=== PATIENT | female | born 1970 | race Caucasian/White ===

== ENCOUNTER 2018-09-06 14:14 | Outpatient (CLI) | payer MEDICARE, MEDICAID, SELFPAY | END 2018-09-06 14:34 | PROVIDERS: PCP Family Medicine; Referring Provider Nurse Practitioner Family; Visit Provider Internal Medicine Infectious Disease | DX: B20 Human immunodeficiency virus [HIV] disease (principal); Z79.899 Other long term (current) drug therapy | CPT/HCPCS: 99215 ==

== ENCOUNTER 2022-05-27 18:39 | Inpatient (IN) | payer OTHER, MEDICAID, SELFPAY ==
[2022-05-27] VITALS (45 sets, daily range): BP systolic 128–143; BP diastolic 75–90; PULSE 108–121; RESP 8–29; TEMP 36.8; O2SAT 84–99
--- NOTE | 2022-05-27 18:45 | DI.RAD_ITS ---
Exam(s) XR PORTABLE CHEST AP EXAM: XR PORTABLE CHEST AP CLINICAL HISTORY: hypoxic/hypercarbic respiratory failure TECHNIQUE: 2D digital imaging was performed of the chest. Two images were obtained. AP views were obtained. COMPARISON: No exams were available for comparison FINDINGS: MEDIASTINUM: Normal. HEART: Normal. PULMONARY VASCULATURE: Normal. LUNGS: Clear. PLEURAL SPACE: No pleural effusion or pneumothorax. BONE:Within normal limits for the patient's age. OTHER FINDINGS:The tip of the enteric tube is just beyond the gastroesophageal junction. The tip of the endotracheal tube is 4.6 cm above the perez. IMPRESSION: 1. No acute pulmonary findings. 2. Tip of the enteric tube is seen just beyond the gastroesophageal junction. The tip of the endotra cheal tube is in good position well above the perez. DATA REPOSITORY: RADIATION DOSE DELIVERED:
[2022-05-27] MEDS: PROPOFOL 1,000 MG/100 ML BTL 19.776 MG IVPB ×2 (19:30→23:34)
[2022-05-27] MEDS: Normal Saline Flush 10 ML SYR (19:30)
[2022-05-27] MEDS: Albuterol/Ipratropium 3 ML UPD VIAL UPD (20:01)
--- NOTE | 2022-05-27 20:19 | DI.VRAD_ITS ---
PROCEDURE INFORMATION: Exam: XR Chest Exam date and time: 05/27/2022 7:50 PM Age: 52 years old Clinical indication: Other: Hypoxic/hypercarbic respiratory failure TECHNIQUE: Imaging protocol: Radiologic exam of the chest. Views: 1 view. COMPARISON: No relevant prior studies available. FINDINGS: Enteric tube tip just distal to the GE junction in the proximal stomach. ETT tip approximately 5 cm above the perez Lungs: Unremarkable. No consolidation. Pleural spaces: Unremarkable. No pleural effusion. No pneumothorax. Heart/Mediastinum: Unremarkable. No cardiomegaly. Bones/joints: Unremarkable. IMPRESSION: No acute findings. Tubes as described in satisfactory position Dictated and Authenticated by: Jorge Castaneda MD. Ordering:[facility] Elizabeth Rutledge MD
[2022-05-27 20:20] LABS: BE (Venous) 3 mmol/L (-2-3); HCO3 (Venous) 30 mmol/L (23-28); O2 Sat (Venous) 84 %; TCO2 (Venous) 29 mmol/L (24-29); pH (Venous) 7.27 (7.31-7.41); pO2 (Venous) 44 mmHg
[2022-05-27 20:21] LABS: Abs Immature Grans 0.05 10^3/uL (0.0-0.06); Absolute Basophil Count 0.01 10^3/uL (0.0-0.2); Absolute Eosinophil Count 0.07 10^3/uL (0.0-0.7); Absolute Lymphocyte Count 1.04 10^3/uL (1.2-3.4); Absolute Monocyte Count 0.68 10^3/uL (0.1-0.8); Basophils % 0.2; Eosinophils % 1.1; HGB 8.8 g/dL (11.2-15.7); Immature Grans % 0.8; Lymphocytes % 15.6; MCHC 31.4 % (32.0-36.0); MCV 118 fL (80-95); MPV 8.1 fL (8.0-11.0); Monocytes % 10.2; Neutrophils % 72.1; Platelet Count 226 10^3/uL (130-400); RBC 2.38 10^6/uL (3.93-5.22); RDW 14.3 % (11.7-14.6); RDW-SD 61.7 fL; WBC 6.65 10^3/uL (4.4-10.8)
[2022-05-27 20:24] LABS: pCO2 (Venous) 65 mmHg (41-51)
--- NOTE | 2022-05-27 20:24 | HPE_ITS ---
Date of service: 05/27/22 Time of Service: 20:25 Assessment and Plan Assessment and plan (1) Acute respiratory failure with hypoxia and hypercapnia: Status: Acute Assessment and plan: Due to acute exacerbation of COPD/asthma. No evidence of a bacterial process triggering this - no role for abx at this time. COVID-19 negative, but will obtain FLUVID. Will also obtain a respiratory culture. For now, will treat with steroids, scheduled + prn nebs, continued symbicort. Adjust vent settings to achieve adequate ventilation. (Tidal volume and RR have to go back up). Per nursing, there is a report of the patient using illicit opioids such as methadone daily. Consider fentanyl, but testing for it at this point may not be helpful as the patient may have received some fentanyl at [facility]. Her UDS was negative. (2) Acute exacerbation of COPD with asthma: Status: Acute Assessment and plan: As above (3) Acute respiratory acidosis: Status: Acute Assessment and plan: as above (4) HIV (human immunodeficiency virus infection): Status: Chronic Assessment and plan: Continue home odefsey (5) DVT prophylaxis: Status: Acute Assessment and plan: lovenox (6) Discharge planning issues: Status: Acute Assessment and plan: Full code Admit to the ICU. Total Critical Care Time 100 minutes. History of Present Illness History of Present Illness Chief Complaint: Altered mental status Narrative: Ms Rogers is a 52 year old female with PMHx of oxygen-dependent COPD as well as asthma, chronic hypoxic respiratory faliure on 4L of O2 by [place], HIV, and reported ongoing daily use of methadone who was brought to [facility] ED by ambulance after kapil nicole found shaky, altered, and with nonsensical speech this morning. As I understand it, she was also somnolent. The patient was last seen normal at 2130 last night. There is no ambulance documentation available for my review. She was unable to provide history upon arrival to [facility] ER. It is documented that she was able to walk. She was afebrile, tachypnic with RR of 26, and tachycardic with HR of 125. Her O2 sats were 97% on RA. her VBG showed pH of 7.04 with PCO2 of 97. She was placed on BiPAP with pCO2 improving to 7.12, but then remaining there for the next 90 minutes despite continued BiPAP therapy, so the patient was intubated with the use of ketamine and succinyl choline and started on propofol for sedation. The patient's vent settings at [facility] were AC, Vt 420 cc, RR 18, PEEP 5, FiO2 of 40%. With this, her ABG did improve to 7.20, pCO2 of 74, pO2 of 84, and bicarb of 29. However, her pressures were too high (40-50 cmH2O) and the tidal volume was dropped. She tested negative for COVID-19. Her CXR was negative for a peumonia. Her CT of the head was also reportedly negative, though I do not have the read in the packet available to me. The patient's BPs were somewhat low on propofol and while initially the rate was decreased with a plan to start a fentanyl drip concurrently, this has not actually been necessary. The patient is normotensive upon arrival to our ICU. Her Current vent settings are AC/Vt 320 cc, RR 14, PEEP 5, FiO2 35%. VBG after 45 minutes of these settings showed: pH of 7.27, pCO2 of 65. Repeat VBG is pending. Review of Systems Unobtainable due to endotracheal tube [facility] All Active Problems (Updated 05/27/22 @ 22:39 by Silvana Guzman MD) Discharge planning issues (Acute) DVT prophylaxis (Acute) Acute respiratory acidosis (Acute) Acute respiratory failure with hypoxia and hypercapnia (Acute) Acute exacerbation of COPD with asthma (Acute) Tendinitis of left rotator cuff (Acute) Swollen feet (Acute) Squamous cell carcinoma in situ (Acute) unknown location Restless legs (Acute) Posttraumatic stress disorder (Acute) Nicotine dependence with current use (Acute) Migraine (Chronic) Kidney stone (Chronic) Insomnia (Acute) GERD (gastroesophageal reflux disease) (Chronic) Elevated blood pressure reading (Acute) Dyspnea (Acute) Depressive disorder (Chronic) Bipolar disorder (Acute) Back problem (Acute) Asthma (Chronic) Arthritis (Acute) Opioid abuse (Acute) Illicit drug use (Acute) Chronic respiratory failure with hypoxia, on home O2 therapy (Acute) COPD (chronic obstructive pulmonary disease) (Chronic) HIV (human immunodeficiency virus infection) (Chronic) Surgical History (Updated 05/27/22 @ 20:32 by Silvana Guzman MD) H/O endoscopy 06/11/2011 History of excision of lesion Hx of colonoscopy 04/16/2011 Hx of hysterectomy 01/09/2002 Family History (Updated 05/27/22 @ 20:33 by Silvana Guzman MD) Other Family history unobtainable due to patient's condition Social History (Updated 05/27/22 @ 20:37 by Silvana Guzman MD) Smoking/Tobacco Use Status: Current every day Smoking risk assessment performed?: Yes Drug use: Daily Details: per report, daily non-prescribed methadone use Meds Allergies and Home Medications Allergies Allergy/AdvReac Type Severity Reaction Status Date / Time mushroom Allergy Unknown Unverified 05/27/22 20:39 codeine AdvReac Unknown Skin Rash Verified 05/27/22 20:39 pollen extracts Allergy Unknown Uncoded 05/27/22 20:39 clindamycin AdvReac Unknown Itching Uncoded 05/27/22 20:39 soap AdvReac Unknown Itching Uncoded 05/27/22 20:39 Home Medications Medication Instructions Recorded Confirmed Type Oxygen 05/27/22 05/27/22 History albuterol sulfate 90 mcg/actuation 1 puff inhalation 4XD 05/27/22 05/27/22 History aerosol inhaler (Ventolin HFA) budesonide-formoterol HFA 160 1 puff inhalation BID 05/27/22 05/27/22 History mcg-4.5 mcg/actuation aerosol inhaler (Symbicort) emtricitabine 200 mg-rilpivirine 1 tab PO DAILY 05/27/22 05/27/22 History 25 mg-tenofovir alafenam 25 mg tablet (Odefsey) Exam Narrative Exam Narrative: General: Middle-aged female who is intubated, sedated, arousable to voice, follows commands Neurological: Follows commands, able to move all 4 extremities Psychiatric: Unable to assess given intubation/sedation Skin: Visible skin intact HEENT: Atraumatic, normocephalic, not tracking, pinpoint pupils, MMM, ET tube in place, no lymphadenopathy, goiter, or JVD Cardiovascular: RRR, no m/r/g, tachycardic Lungs: Diminished ventilator breath sounds B Gastrointestinal: soft, nondistended Genitourinary: has a maguire Extremities: no edema BLEs, no lesions B feet, +1 pedal pulses B, no c/c. Results Imaging Additional studies: Labs at [facility]: CBC: 11.8 H/H 10.4/33.7 Plts 375 Segs 76 Lymphs 11.9 Imm Granulocytes 1.9 CMP: Na 137 K 5.3 Chloride 100 Bicarb 33 BUN 10 Cr 0.97 Glucose 150 Calcium 8.6 AST 23 ALT 24 Alk phos 93 T protein 7.8 Albumin 3.9 T bili 0.2 Lactic acid <0.8 beta hydroxybutyrate 0.6. Troponin I 9.2 pg/mL Procalcitonin <0.15 Magnesium 2.1 D-dimer 0.53 mg/L Acetaminophen level <10 ug/mL Salicylate level 2.0 mg/dL Ethanol level <5 mg/dl UDS: negative UA: specific gravity >=1.030 UA blood 2+ UA pH 6.0 UA protein 2+ UA leuc est negative, UA nitrite negative CXR: No acute findings. Tubes as described in satisfactory position CT head: Done at [facility], but results are not available for my review EKG (Done at [facility]): NSR, HR around 90, no acute ischemia Labs 05/27/22 20:07 05/27/22 20:07 Last Vital Signs Temp 36.8 C 05/27/22 19:42 Pulse 108 H 05/27/22 20:01 Resp 14 05/27/22 20:01 BP 139/90 05/27/22 19:42 Pulse Ox 94 05/27/22 20:01 Multi-Disciplinary Checklist Lines/Tubes CENTRAL LINE: no ARTERIAL LINE: no MAGUIRE: yes, Maguire Day#: 0 ENDOTRACHEAL TUBE: yes, Endotracheal Tube Day#: 0 Sedation: yes, Sedation Vacation: yes Head of Bed@30 degrees: yes Spontaneous Breathing Trial: yes ICU Maintenance GLUCOSE 140-180mg/dL: no, Reason/Intervention: not diabetic NUTRITION AT GOAL: no, PRESSURE ULCER: no RESTRAINTS: yes, Reviewed Necessity: Yes ANTIBIOTICS(if yes, consider Stewardship): No Social Issues FAMILY UPDATED: no, Reason/Intervention: The patient was transferred from [facility] where, as I understand it, conversation with the family had happened PT/OT: no, Reason/Intervention: Not clinically appropriate GOALS/DISPOSITION/AUTHOR'S AGENT: yes CODE STATUS: Full Prophylaxis DVT PROPHYLAXIS: yes GI PROPHYLAXIS: yes, Indication: NPO, on vent Time Spent Time spent with Patient: >75 minutes Time was spent: preparing to see the patient(eg.review tests), obtaining and/or reviewing separately otained hiistory, ordering medications,tests, procedures, referring, communicating with other health spiritual care coordinator, indepentently interpreting results, counseling the patient and care coordination
[2022-05-27 20:37] LABS: Basophilic Stippling Present; Diff Comment RBC Morph Reviewed; Macrocytosis 2+
[2022-05-27 20:42] LABS: ALT 19 U/L (14-59); AST 15 U/L (15-37); Albumin 3.2 g/dL (3.4-5.0); Alkaline Phosphatase 71 U/L (46-116); Anion Gap 1.9 mmol/L (3-11); BUN 7 mg/dL (7-18); Bilirubin, Total 0.3 mg/dL (0.2-1.0); CO2 34.1 mmol/L (21.0-32.0); CREATININE 0.8 mg/dL (0.55-1.02); Calcium 8.1 mg/dL (8.5-10.1); Chloride 106 mmol/L (98-107); Estimated GFR 89.15 (mL/min/1.73m2); Glucose 75 mg/dL (74-106); Potassium 4.5 mmol/L (3.5-5.1); Sodium 142 mmol/L (136-145); Total Protein 6.3 g/dL (6.4-8.2); Troponin I < 50 ng/L (<or=60)
[2022-05-27 20:52] LABS: D-Dimer 641 ng/mlFEU (<500)
[2022-05-27 21:04] LABS: Lab Add On Test DONE
[2022-05-27] MEDS: Lactated Ringers 1,000 ML 100 ML IV (21:39)
[2022-05-27] MEDS: Enoxaparin 40 MG/0.4 ML SYR SC (21:40)
[2022-05-27] MEDS: methylPREDNISolone SUCC 125 MG VIAL IVP (21:40)
[2022-05-27] MEDS: Pantoprazole 40 MG VIAL IVP (21:41)
[2022-05-27 21:43] LABS: NT-proBNP 338 pg/mL (<300)
[2022-05-27 21:56] LABS: BE (Venous) 3 mmol/L (-2-3); HCO3 (Venous) 31 mmol/L (23-28); O2 Sat (Venous) 71 %; TCO2 (Venous) 31 mmol/L (24-29); pO2 (Venous) 38 mmHg
[2022-05-27] MEDS: FAMOTIDINE 20 MG in Normal Saline 100 ML 400 MG IVPB (22:00)
[2022-05-27 22:01] LABS: pCO2 (Venous) 81 mmHg (41-51); pH (Venous) 7.19 (7.31-7.41)
[2022-05-27 23:24] LABS: BE (Venous) 4 mmol/L (-2-3); HCO3 (Venous) 28 mmol/L (23-28); pCO2 (Venous) 43 mmHg (41-51); pH (Venous) 7.43 (7.31-7.41); pO2 (Venous) 133 mmHg
[2022-05-27] MEDS: DEXTROSE 5%-LACTATED RINGERS 1,000 ML 100 ML IV (23:56)
[2022-05-28] VITALS (146 sets, daily range): BP systolic 97–158; BP diastolic 58–98; PULSE 60–126; RESP 1–31; TEMP 36.4–37.2; O2SAT 85–95
[2022-05-28 00:05] LABS: COVID-19 PCR Negative (Negative); Influenza A PCR Negative (Negative); Influenza B PCR Negative (Negative); RSV PCR Negative (Negative)
[2022-05-28 00:17] LABS: Source Nasopharynx
[2022-05-28] MEDS: LORazepam 2 MG/ML VIAL 1 MG IVP ×2 (00:19→02:57)
[2022-05-28] MEDS: Albuterol/Ipratropium 3 ML UPD VIAL UPD ×2 (01:00→07:29)
[2022-05-28 01:52] LABS: BE (Venous) 5 mmol/L (-2-3); HCO3 (Venous) 26 mmol/L (23-28); O2 Sat (Venous) 100 %; TCO2 (Venous) 27 mmol/L (24-29); pCO2 (Venous) 26 mmHg (41-51); pO2 (Venous) 145 mmHg
[2022-05-28 01:54] LABS: pH (Venous) 7.61 (7.31-7.41)
[2022-05-28] MEDS: PROPOFOL 1,000 MG/100 ML BTL 36.1 MG IVPB ×2 (03:01→05:41)
[2022-05-28 03:24] LABS: BE (Venous) 3 mmol/L (-2-3); HCO3 (Venous) 30 mmol/L (23-28); O2 Sat (Venous) 96 %; TCO2 (Venous) 29 mmol/L (24-29); pH (Venous) 7.29 (7.31-7.41); pO2 (Venous) 69 mmHg
[2022-05-28 03:29] LABS: pCO2 (Venous) 62 mmHg (41-51)
[2022-05-28 06:03] LABS: BE (Venous) 4 mmol/L (-2-3); HCO3 (Venous) 31 mmol/L (23-28); pCO2 (Venous) 60 mmHg (41-51); pH (Venous) 7.32 (7.31-7.41); pO2 (Venous) 166 mmHg
[2022-05-28 06:31] LABS: Anion Gap 2.6 mmol/L (3-11); BUN 12 mg/dL (7-18); CO2 31.4 mmol/L (21.0-32.0); CREATININE 0.8 mg/dL (0.55-1.02); Calcium 8.2 mg/dL (8.5-10.1); Chloride 104 mmol/L (98-107); Estimated GFR 89.15 (mL/min/1.73m2); Glucose 175 mg/dL (74-106); Potassium 4.4 mmol/L (3.5-5.1); Sodium 138 mmol/L (136-145)
[2022-05-28 07:28] LABS: Abs Immature Grans 0.04 10^3/uL (0.0-0.06); Absolute Lymphocyte Count 0.17 10^3/uL (1.2-3.4); Absolute Monocyte Count 0.07 10^3/uL (0.1-0.8); Absolute Neutrophil Count 5.16 10^3/uL (1.2-6.7); HCT 27.1 % (36.0-46.0); HGB 8.5 g/dL (11.2-15.7); Immature Grans % 0.7; Lymphocytes % 3.1; MCH 36.6 pg (27.0-33.0); MCHC 31.4 % (32.0-36.0); MCV 117 fL (80-95); MPV 8.4 fL (8.0-11.0); Monocytes % 1.3; Neutrophils % 94.9; Platelet Count 226 10^3/uL (130-400); RBC 2.32 10^6/uL (3.93-5.22); RDW 14.1 % (11.7-14.6); WBC 5.44 10^3/uL (4.4-10.8)
[2022-05-28] MEDS: methylPREDNISolone SUCC 125 MG VIAL 60 MG IVP ×3 (07:54→23:58)
[2022-05-28] MEDS: Normal Saline Flush 10 ML SYR IVP ×3 (07:55→16:07)
--- NOTE | 2022-05-28 08:02 | PGE_ITS ---
Date of Service Date of service: 05/28/22 Time of Service: 08:02 Assessment and Plan Assessment and plan (1) Acute respiratory failure with hypoxia and hypercapnia: Status: Acute Assessment and plan: acute hypoxic/hypercarbic resp. failure in patient w/known COPD and/or asthma who is a current smoker. No evidence for infectious process. attempt made at weaning from ventilator; she failed spontaneous breathing w/ PSV and repeat ABG demonstrated continued resp. acidosis w/ CO2 65 and O2 66 w/ pH of 7.28, patient was breathing on her own at RR of 12 to 13. Patient has been placed back to AC at 16 bpm; her TV of 310 and Peep OF 8 CM. Her ETCO2 is around 55 and her SPO2 is 88 to 89%. continue w/ iv corticosteroids, scheduled atrovent and prn xopenex; continue Symbicort. sedation w/ combination of precedex and diprivan (goal to wean down/off diprivan), use fentanyl low dose as adjunct for pain control and sedation. She has chronic pain syndrome and reportedly is a user of narcotics although her UDS was negative from [facility]. Dr. Guzman specifically sent of drug screen for methadone since this is one of the medications she reportedly was taking. (2) Acute exacerbation of COPD with asthma: Status: Acute Assessment and plan: As above (3) HIV (human immunodeficiency virus infection): Status: Chronic Assessment and plan: Continue home odefsey, HIV quantification pending (4) DVT prophylaxis: Status: Acute Assessment and plan: lovenox (5) On famotidine prophylaxis: Status: Acute (6) Discharge planning issues: Status: Acute Assessment and plan: Full code Admit to the ICU. Total Critical Care Time 45 minutes. Subjective Subjective Interval history since last seen: Patient was transferred from [facility] in [place], [place] last night w/ acute hypoxic and hypercarbic respiratory failure. Patient failed BIPAP in the ED at [facility] and was intubated. She remains intubated on diprivan drip for sedation. RT switched her to spontaneous breathing this morning. Respirations are non-labored at 12 to 13 bpm, her PAP are in the low to mid 20's. Her SPO2 however was in the mid 80's and not correlating w/ her VBG this morning. ABG has been sent. She is now on FIO2 of 40%, PEEP 8 cm and PS 15 cm. Propofol drip has been decreased from 70 to 25. CXR last night did not show any infiltrates. Patient is on iv steroids, bronchodilators but has not required any antibiotics. Exam Narrative Exam Narrative: Sedated, intubated, but sponataneously breathing at 12 to 13 bpm; she is begin jonatan to move around a bit since her diprivan drip was decreased HEENT: some edema of her eyelids, sclera anicteric, EOMI Neck: supple, no JVD Lungs: clear Heart: regular but tachycardia (monitor shows sinus tachycardia in the 110 to 120); no murmur Abdomen: soft, nontender, normal bowel sounds; no palpable masses nor any bruits Legs/feet: no needle tracks seen; good pulses, no cyanosis; Arms/hands: multiple bruises and prior puncture reyna secondary to labs draws and IV starts; no signs of cutting or scarred needle tracks Neuro: nonfocal, moves all 4's; not following commands yet Objective Last Vital Signs Temp 36.4 C L 05/28/22 04:07 Pulse 121 H 05/28/22 07:31 Resp 15 05/28/22 07:31 BP 112/65 05/28/22 07:15 Pulse Ox 87 L 05/28/22 07:31 Laboratory Results - last 24 hr 05/27/22 05/27/22 05/27/22 16:10 16:10 20:07 WBC RBC Hgb Hct MCV MCH MCHC RDW Plt Count MPV Immature Gran % Neutrophils % Band Neutrophils % Lymphocytes % Atypical Lymphs % Monocytes % Eosinophils % Basophils % Metamyelocytes % Myelocytes % Promyelocytes % Other Cells % Nucleated RBC % Absolute Neutrophils Absolute Lymphocytes Absolute Monocytes Absolute Eosinophils Absolute Basophils RBC Morphology Polychromasia Hypochromasia Poikilocytosis Basophilic Stippling Anisocytosis Microcytosis Macrocytosis Spherocytes Tear Drop Cells Ovalocytes Stomatocytes [place] Bodies Geoff Cells/Echinocytes Acanthocytes (Spur) Schistocytes D-Dimer VBG pH VBG pCO2 VBG pO2 VBG HCO3 VBG Total CO2 VBG O2 Saturation Not Applicable VBG Base Excess Sodium 142 Potassium 4.5 Chloride 106 Carbon Dioxide 34.1 H Anion Gap 1.9 L BUN 7 Creatinine 0.8 Est GFR (CKD-EPI 2020) 89.15 Glucose 75 Calcium 8.1 L Total Bilirubin 0.3 AST 15 ALT 19 Alkaline Phosphatase 71 Troponin I < 50 NT-Pro-B Natriuret Pep Total Protein 6.3 L Albumin 3.2 L COVID-19 Source Nasopharynx SARS-CoV-2 (PCR) Negative Influenza Type A (PCR) Negative Influenza Type B (PCR) Negative RSV (PCR) Negative Add-On Test Request 05/27/22 05/27/22 05/27/22 20:07 20:07 20:07 WBC 6.65 RBC 2.38 L Hgb 8.8 L Hct 28.0 L MCV 118 H MCH 37.0 H MCHC 31.4 L RDW 14.3 Plt Count 226 MPV 8.1 Immature Gran % 0.8 Neutrophils % 72.1 Band Neutrophils % Lymphocytes % 15.6 Atypical Lymphs % Monocytes % 10.2 Eosinophils % 1.1 Basophils % 0.2 Metamyelocytes % Myelocytes % Promyelocytes % Other Cells % Nucleated RBC % 0.0 Absolute Neutrophils 4.80 Absolute Lymphocytes 1.04 L Absolute Monocytes 0.68 Absolute Eosinophils 0.07 Absolute Basophils 0.01 RBC Morphology See Below Polychromasia Hypochromasia Poikilocytosis Basophilic Stippling Present Anisocytosis Microcytosis Macrocytosis 2+ Spherocytes Tear Drop Cells Ovalocytes Stomatocytes [place] Bodies Geoff Cells/Echinocytes Acanthocytes (Spur) Schistocytes D-Dimer 641 H VBG pH 7.27 L VBG pCO2 65 H* VBG pO2 44 VBG HCO3 30 H VBG Total CO2 29 VBG O2 Saturation 84 VBG Base Excess 3 Sodium Potassium Chloride Carbon Dioxide Anion Gap BUN Creatinine Est GFR (CKD-EPI 2020) Glucose Calcium Total Bilirubin AST ALT Alkaline Phosphatase Troponin I NT-Pro-B Natriuret Pep Total Protein Albumin COVID-19 Source SARS-CoV-2 (PCR) Influenza Type A (PCR) Influenza Type B (PCR) RSV (PCR) Add-On Test Request 05/27/22 05/27/22 05/27/22 20:07 20:10 21:50 WBC RBC Hgb Hct MCV MCH MCHC RDW Plt Count MPV Immature Gran % Neutrophils % Band Neutrophils % Lymphocytes % Atypical Lymphs % Monocytes % Eosinophils % Basophils % Metamyelocytes % Myelocytes % Promyelocytes % Other Cells % Nucleated RBC % Absolute Neutrophils Absolute Lymphocytes Absolute Monocytes Absolute Eosinophils Absolute Basophils RBC Morphology Polychromasia Hypochromasia Poikilocytosis Basophilic Stippling Anisocytosis Microcytosis Macrocytosis Spherocytes Tear Drop Cells Ovalocytes Stomatocytes [place] Bodies [place] Cells/Echinocytes Acanthocytes (Spur) Schistocytes D-Dimer VBG pH 7.19 L* VBG pCO2 81 H* VBG pO2 38 VBG HCO3 31 H VBG Total CO2 31 H VBG O2 Saturation 71 VBG Base Excess 3 Sodium Potassium Chloride Carbon Dioxide Anion Gap BUN Creatinine Est GFR (CKD-EPI 2020) Glucose Calcium Total Bilirubin AST ALT Alkaline Phosphatase Troponin I NT-Pro-B Natriuret Pep 338 H Total Protein Albumin COVID-19 Source SARS-CoV-2 (PCR) Influenza Type A (PCR) Influenza Type B (PCR) RSV (PCR) Add-On Test Request DONE 05/27/22 05/28/22 05/28/22 23:15 01:20 03:16 WBC RBC Hgb Hct MCV MCH MCHC RDW Plt Count MPV Immature Gran % Neutrophils % Band Neutrophils % Lymphocytes % Atypical Lymphs % Monocytes % Eosinophils % Basophils % Metamyelocytes % Myelocytes % Promyelocytes % Other Cells % Nucleated RBC % Absolute Neutrophils Absolute Lymphocytes Absolute Monocytes Absolute Eosinophils Absolute Basophils RBC Morphology Polychromasia Hypochromasia Poikilocytosis Basophilic Stippling Anisocytosis Microcytosis Macrocytosis Spherocytes Tear Drop Cells Ovalocytes Stomatocytes [place] Bodies [place] Cells/Echinocytes Acanthocytes (Spur) Schistocytes D-Dimer VBG pH 7.43 H 7.61 H* 7.29 L VBG pCO2 43 26 L 62 H* VBG pO2 133 145 69 VBG HCO3 28 26 30 H VBG Total CO2 27 29 VBG O2 Saturation 100 96 VBG Base Excess 4 H 5 H 3 Sodium Potassium Chloride Carbon Dioxide Anion Gap BUN Creatinine Est GFR (CKD-EPI 2020) Glucose Calcium Total Bilirubin AST ALT Alkaline Phosphatase Troponin I NT-Pro-B Natriuret Pep Total Protein Albumin COVID-19 Source SARS-CoV-2 (PCR) Influenza Type A (PCR) Influenza Type B (PCR) RSV (PCR) Add-On Test Request 05/28/22 05/28/22 05/28/22 05:45 05:45 05:45 WBC Cancelled RBC Cancelled Hgb Cancelled Hct Cancelled MCV Cancelled MCH Cancelled MCHC Cancelled RDW Cancelled Plt Count Cancelled MPV Cancelled Immature Gran % Cancelled Neutrophils % Cancelled Band Neutrophils % Cancelled Lymphocytes % Cancelled Atypical Lymphs % Cancelled Monocytes % Cancelled Eosinophils % Cancelled Basophils % Cancelled Metamyelocytes % Cancelled Myelocytes % Cancelled Promyelocytes % Cancelled Other Cells % Cancelled Nucleated RBC % Cancelled Absolute Neutrophils Cancelled Absolute Lymphocytes Cancelled Absolute Monocytes Cancelled Absolute Eosinophils Cancelled Absolute Basophils Cancelled RBC Morphology Cancelled Polychromasia Cancelled Hypochromasia Cancelled Poikilocytosis Cancelled Basophilic Stippling Cancelled Anisocytosis Cancelled Microcytosis Cancelled Macrocytosis Cancelled Spherocytes Cancelled Tear Drop Cells Cancelled Ovalocytes Cancelled Stomatocytes Cancelled [place] Bodies Cancelled [place] Cells/Echinocytes Cancelled Acanthocytes (Spur) Cancelled Schistocytes Cancelled D-Dimer VBG pH 7.32 VBG pCO2 60 H VBG pO2 166 VBG HCO3 31 H VBG Total CO2 VBG O2 Saturation VBG Base Excess 4 H Sodium 138 Potassium 4.4 Chloride 104 Carbon Dioxide 31.4 Anion Gap 2.6 L BUN 12 Creatinine 0.8 Est GFR (CKD-EPI 2020) 89.15 Glucose 175 H Calcium 8.2 L Total Bilirubin AST ALT Alkaline Phosphatase Troponin I NT-Pro-B Natriuret Pep Total Protein Albumin COVID-19 Source SARS-CoV-2 (PCR) Influenza Type A (PCR) Influenza Type B (PCR) RSV (PCR) Add-On Test Request 05/28/22 07:15 WBC 5.44 RBC 2.32 L Hgb 8.5 L Hct 27.1 L MCV 117 H MCH 36.6 H MCHC 31.4 L RDW 14.1 Plt Count 226 MPV 8.4 Immature Gran % 0.7 Neutrophils % 94.9 Band Neutrophils % Lymphocytes % 3.1 Atypical Lymphs % Monocytes % 1.3 Eosinophils % 0.0 Basophils % 0.0 Metamyelocytes % Myelocytes % Promyelocytes % Other Cells % Nucleated RBC % 0.0 Absolute Neutrophils 5.16 Absolute Lymphocytes 0.17 L Absolute Monocytes 0.07 L Absolute Eosinophils 0.00 Absolute Basophils 0.00 RBC Morphology Polychromasia Hypochromasia Poikilocytosis Basophilic Stippling Anisocytosis Microcytosis Macrocytosis Spherocytes Tear Drop Cells Ovalocytes Stomatocytes [place] Bodies Geoff Cells/Echinocytes Acanthocytes (Spur) Schistocytes D-Dimer VBG pH VBG pCO2 VBG pO2 VBG HCO3 VBG Total CO2 VBG O2 Saturation VBG Base Excess Sodium Potassium Chloride Carbon Dioxide Anion Gap BUN Creatinine Est GFR (CKD-EPI 2020) Glucose Calcium Total Bilirubin AST ALT Alkaline Phosphatase Troponin I NT-Pro-B Natriuret Pep Total Protein Albumin COVID-19 Source SARS-CoV-2 (PCR) Influenza Type A (PCR) Influenza Type B (PCR) RSV (PCR) Add-On Test Request Time Spent with Patient Time Spent with Patient: 35-49 minutes Time was spent: preparing to see the patient(eg.review tests), ordering medications,tests, procedures, referring, communicating with other health career advisor (discussion w/ ICU nursing, RT and Dr. Guzman), indepentently interpreting results and care coordination
[2022-05-28 08:21] LABS: BE 4 mmol/L (-2-3); HCO3 31 mmol/L (22-26); pH 7.29 (7.35-7.45); pO2 66 mmHg (80-105); sO2 94 % (95-98); tCO2 30 mmol/L (23-27)
[2022-05-28 08:22] LABS: Site Left Radial; pCO2 65 mmHg (35-45)
[2022-05-28 08:23] LABS: FIO2 40 %
[2022-05-28] MEDS: Budesonide/Formoterol 160/4.5 6 GM 60 PUFF INH IH ×2 (08:52→20:02)
[2022-05-28] MEDS: PROPOFOL 1,000 MG/100 ML BTL 24.72 MG IVPB (08:56)
[2022-05-28] MEDS: dexmedeTOMidine IN 0.9 % NACL 400 MCG/100 ML BTL 10.513 MCG IV ×2 (09:04→16:06)
[2022-05-28 09:15] LABS: Lab Add On Test DONE
[2022-05-28 09:36] LABS: BE (Venous) 5 mmol/L (-2-3); HCO3 (Venous) 31 mmol/L (23-28); O2 Sat (Venous) 94 %; TCO2 (Venous) 29 mmol/L (24-29); pCO2 (Venous) 57 mmHg (41-51); pH (Venous) 7.33 (7.31-7.41); pO2 (Venous) 62 mmHg
--- NOTE | 2022-05-28 09:39 | INITIAL_ITS ---
- If Service Date Differs Date of service: 05/28/22 Time of Service: 09:39 Care Management Initial Assess REASON FOR HOSPITALIZATION:: Acute Hypoxic and Hypercarbic Respiratory Failure PAST MEDICAL HISTORY/PAST SURGICAL HISTORY:: All Active Problems (Updated 05/27/22 @ 22:39 by Silvana Guzman MD). Discharge planning issues (Acute). DVT prophylaxis (Acute). Acute respiratory acidosis (Acute). Acute respiratory failure with hypoxia and hypercapnia (Acute). Acute exacerbation of COPD with asthma (Acute). Tendinitis of left rotator cuff (Acute). Swollen feet (Acute). Squamous cell carcinoma in situ (Acute). unknown location. Restless legs (Acu te). Posttraumatic stress disorder (Acute). Nicotine dependence with current use (Acute). Migraine (Chronic). Kidney stone (Chronic). Insomnia (Acute). GERD (gastroesophageal reflux disease) (Chronic). Elevated blood pressure reading (Acute). Dyspnea (Acute). Depressive disorder (Chronic). Bipolar disorder (Acute). Back problem (Acute). Asthma (Chronic). Arthritis (Acute). Opioid abuse (Acute). Illicit drug use (Acute). Chronic respiratory failure with hypoxia, on home O2 therapy (Acute). COPD (chronic obstructive pulmonary disease) (Chronic). HIV (human immunodeficiency virus infection) (Chronic). Surgical History (Updated 05/27/22 @ 20:32 by Silvana Guzman MD). H/O endoscopy. 06/11/2011. History of excision of lesion. Hx of colonoscopy. 04/16/2011. Hx of hysterectomy. 01/09/2002 PREVIOUS FUNCTIONAL STATUS/SOCIAL/FAMILY SUPPORTS:: Yadira Fisher resides in [facility]#[phone]. 05/29/22: 4L O2 at baseline, but is otherwise very independent. She stated that she is on SSDI, and lives with her son, daughter in law, and grandson. She reported that she does not feel that she needs any additional support at home upon discharge. CURRENT FUNCTIONAL STATUS:: Intubated and sedated, no family present. ADVANCE DIRECTIVES:: None on file. Has patient been provided with info about the portal/API?: No Did the patient sign up for the portal?: No CODE STATUS:: Full Code INSURANCE COVERAGE / FINANCIAL ISSUES:: [employer] CURRENT HOME/COMMUNITY SERVICES/EQUIPMENT:: Unable to determine; patient intubated. PRIMARY CARE PHYSICIAN:: Rika Ventura POTENTIAL DISCHARGE NEEDS:: AD, Follow up appointments PATIENT/FAMILY EDUCATION NEEDS:: Review discharge instructions, discuss Ask Me Three. ANTICIPATED BARRIERS TO DISCHARGE:: None identified at this time. TRANSPORTATION:: Dependent on mobility and disposition. PLAN:: Adele continues to be closely monitored and treated. Anticipate attempts will be made at extubation, dependent on MD recommendations. CM continues to follow.
[2022-05-28 09:43] LABS: Bilirubin Negative (Negative); Blood Large (Negative); Clarity Sl Cloudy (Clear); Glucose Negative (Negative); Ketones Negative (Negative); Leukocyte Esterase Negative (Negative); Nitrite Negative (Negative); Specific Gravity 1.025 (1.005-1.025); Urobilinogen 0.2 mg/dL (Up to 0.2)
[2022-05-28 09:54] LABS: Bacteria Negative HPF (Negative); C & S Indicated? No; Crystals Negative HPF (Negative); Epithelial Cells Rare HPF (Negative); Mucus Negative (Negative); RBC >50 HPF (0-2); WBC Negative HPF (0-5)
[2022-05-28 10:06] LABS: PHOSPHORUS 2.1 mg/dL (2.6-4.7)
--- NOTE | 2022-05-28 11:00 | DI.CT_ITS ---
Exam(s) CT CHEST PE CTA EXAM: CT CHEST PE CTA CLINICAL HISTORY: hypoxia. TECHNIQUE: Imaging Protocol: Axial CT angiography was performed with multi-slice acquisition and mu lti-planar and/or 3D reconstructions. CONTRAST MATERIAL: Intravenous: Omnipaque 350 contrast volume:99 mL COMPARISON: CR,XR XR PORTABLE CHEST AP from 05/27/2022 FINDINGS: Tracheobronchial tree: There is an ET tube in place. The tip is in good position 4 cm above the brooke na. Pulmonary parenchyma: Emphysematous changes are present in the lungs. There are dependent atelectati c changes in the lungs. Pulmonary Arteries: No evidence of filling defect to suggest pulmonary emboli. Mediastinum and Marni: No dominant adenopathy or fluid collection. The esophagus is unremarkable. Th e tip of the enteric tube is seen in the stomach. Visualized thyroid gland: Unremarkable. Pleura: No effusion or pneumothorax. Heart: The heart is not dilated. No coronary artery calcifications are seen. No pericardial effusion. Aorta: Thoracic aorta non-dilated. No evidence of dissection. Upper abdomen: There is mild left renal cortical atrophy. Soft tissues: Unremarkable. Bones: Within normal limits for the patient's age. IMPRESSION: No evidence of pulmonary embolism, thoracic aortic dissection or aneurysm. RADIATION DOSE DELIVERED: 488mGy.cm Total DLP DATA REPOSITORY: All CT scans at this facility are submitted to the National Radiology Data Registry (NRDR) Dose Index Registry (DIR) with the [employer] (ACR). RADIATION OPTIMIZATION: All CT scans at this facility use at least one of these dose optimization te chniques: automated exposure control; mA and/or kV adjustment per patient size (includes targeted exa ms where dose is matched to clinical indication); or iterative reconstruction.
--- NOTE | 2022-05-28 11:18 | W.NUTCONSULT ---
Date of service: 05/28/22 Time of Service: 11:19 Nutritional Consult ASSESSMENT: Ms. Rogers is in the ICU and intubated related to a COPD exacerbation. Nutrition consult requested for tube feeding recommendations. She is 64 and 185 lbs (84.1kg). Her BMI is 32.8 kg/m2 c/w class 1 obesity. Adjusted ideal body weight is 76 kg Estimated energy needs are 1800 kcal/day (REE x 1.2) Estimated protein needs are 76-91 g/day (1.0 to 1.2 g/kg/day of adjusted IBW) Estimated fluid needs are 1800 ml/day ( 1 ml/kcal provided) NUTRITIONAL DIAGNOSIS: Inability to take oral foods and fluids related to intubation from COPD exacerbation as evidenced by NPO status. INTERVENTION: If prolonged intubation and or NPO status is likely, would consider nutrition support of NG feeds. Would recommend a goal of Osmolite 1.5 tierney @ 50 ml/hr continuously to provide 1800 kcal/day and 75 grams of protein. This regimen would provide about 1.0L of free water therefore another 800 to 1000 ml of free water would be needed to provide optimal hydration. Start feeding at 30 ml/hr x 4 hours. Increase by 15 ml q 4 hours as tolerated until goal of 50 ml/hr is met. MONITORING AND EVALUATION: 1. Will monitor weight and tolerance to feedings whether NG or PO. 2. Will evaluate nutrition care plan ongoing and adjust as needed. Time Spent in Nutritional Counseling and Treatment: 0
[2022-05-28] MEDS: Normal Saline - Diluent 50 ML VIAL IV (12:00)
[2022-05-28] MEDS: Omnipaque 350 MG/ML 500 ML BTL-Imaging package IJ (12:00)
[2022-05-28] MEDS: PROPOFOL 1,000 MG/100 ML BTL 17.304 MG IVPB (14:02)
[2022-05-28 14:40] LABS: Lab Add On Test DONE
[2022-05-28 15:25] LABS: Procalcitonin < 0.1 ng/mL
[2022-05-28] MEDS: PROPOFOL 1,000 MG/100 ML BTL 14.832 MG IVPB (22:10)
[2022-05-28] MEDS: FAMOTIDINE 20 MG in Normal Saline 100 ML 400 MG IVPB (22:24)
[2022-05-28] MEDS: Enoxaparin 40 MG/0.4 ML SYR SC (22:25)
[2022-05-28] MEDS: Lacri-Lube 3.5 GM TUBE OU (22:38)
[2022-05-29] VITALS (136 sets, daily range): BP systolic 130–164; BP diastolic 74–104; PULSE 84–138; RESP 14–39; TEMP 31–39.9; O2SAT 85–96
[2022-05-29] MEDS: dexmedeTOMidine IN 0.9 % NACL 400 MCG/100 ML BTL 10.513 MCG IV (01:41)
[2022-05-29] MEDS: PROPOFOL 1,000 MG/100 ML BTL 14.832 MG IVPB (03:12)
[2022-05-29] MEDS: LORazepam 2 MG/ML VIAL 1 MG IVP (05:07)
[2022-05-29 05:50] LABS: BE (Venous) 7 mmol/L (-2-3); HCO3 (Venous) 32 mmol/L (23-28); pCO2 (Venous) 48 mmHg (41-51); pH (Venous) 7.43 (7.31-7.41); pO2 (Venous) 187 mmHg
[2022-05-29 06:31] LABS: Anion Gap 2.4 mmol/L (3-11); BUN 12 mg/dL (7-18); CO2 31.6 mmol/L (21.0-32.0); CREATININE 0.8 mg/dL (0.55-1.02); Chloride 103 mmol/L (98-107); Estimated GFR 89.15 (mL/min/1.73m2); Glucose 163 mg/dL (74-106); Potassium 4.3 mmol/L (3.5-5.1); Sodium 137 mmol/L (136-145)
[2022-05-29 06:35] LABS: PHOSPHORUS 2.9 mg/dL (2.6-4.7)
[2022-05-29 06:38] LABS: Abs Immature Grans 0.07 10^3/uL (0.0-0.06); Absolute Basophil Count 0.01 10^3/uL (0.0-0.2); Absolute Lymphocyte Count 0.31 10^3/uL (1.2-3.4); Absolute Monocyte Count 0.47 10^3/uL (0.1-0.8); Absolute Neutrophil Count 8.83 10^3/uL (1.2-6.7); Basophils % 0.1; HCT 29.1 % (36.0-46.0); HGB 9.5 g/dL (11.2-15.7); Immature Grans % 0.7; Lymphocytes % 3.2; MCH 36.7 pg (27.0-33.0); MCHC 32.6 % (32.0-36.0); MCV 112 fL (80-95); MPV 9.6 fL (8.0-11.0); Monocytes % 4.9; Neutrophils % 91.1; Platelet Count 253 10^3/uL (130-400); RBC 2.59 10^6/uL (3.93-5.22); RDW 14.2 % (11.7-14.6); RDW-SD 57.7 fL; WBC 9.69 10^3/uL (4.4-10.8)
--- NOTE | 2022-05-29 06:48 | W.PULMCC ---
General Date of Service Date of service: 05/29/22 Time of Service: 06:49 Reason for Admission to ICU: Acute on chronic hypoxic and hypercapnic respiratory failure Assessment and Plan Assessment and plan (1) Acute on chronic respiratory failure with hypoxia and hypercapnia: Status: Acute (2) Acute exacerbation of COPD with asthma: Status: Acute (3) Nicotine dependence with current use: Status: Acute (4) HIV (human immunodeficiency virus infection): Status: Chronic (5) Opioid abuse: Status: Acute (6) Pulmonary cavitary lesion: Status: Acute (7) Anemia: Status: Chronic Assessment and plan: This is a 52 yo with known COPD and asthma who is intubated for acute on chronic hypoxic and hypercapnic respiratory failure requiring mechanical ventilation. Clinically today she does not seem to be in exacerbation, however I was not present on admission. Her ventilator mechanics and exam show no signs of significant bronchoconstriction so will decrease the steroids to typical COPD exacerbation dosing. She should be on either azithromycin or doxycycline as part of COPD exacerbation treatment, despite not having a known infection. On review of her imaging, she has a UMANG cavitary lung lesion that will need further work up. Her last CD4 was in 2019 and her last viral load was in 2018. Her HIV quant level has been ordered but I have added on the T-cell subsets. I will ensure these values make it to Dr. Tompkins. I have ordered a quanteferon, histo and blasto urine antigens and a rheumatologic assessment given this lesion. I will also plan on seeing her as an outpatient for this lesion as well as her COPD. Recommendations Pulmonary: Acute on chronic hypoxic and hypercapnic respiratory failure - passed SBT today - recommend extubation to HFNC - recommend HFNC for 24 hours for prophylaxis of extubation failure - no need for read blood gases unless these is a clinical change - Lasix 40mg IV one dose this morning COPD Exacerbation - decrease methylprednisilone to 40mg daily - continue home Symbicort and albuterol - recommend starting azithromycin - incentive spirometer and VibraPEP once extubated - recommend ambulation once extubated - I will see the patient in follow up as an outpatient UMANG cavitary lung lesion - Quanteferon, histo and blasto urine antigens, CHYNA, RF, anti-CCP, ANCA - will repeat CT scan at [facility] in 2 months - again I will follow the patient up as an outpatient Smoking - on nicotine patch Cardiac: Query borderline LVEF - recommend formal echo based on POCUS images today Renal: No acute concerns I&O: Intake & Output 05/26/22 05/27/22 05/28/22 05/29/22 23:59 23:59 23:59 23:59 Intake Total 182.422 / 094.919 0311.435 / 2498.435 181.081 / 181.081 Output Total 175 / 175 875 / 875 900 / 900 Balance 7.422 / 7.422 1623.435 / 1623.435 -718.919 / -718.919 Weight 82.4 kg 84.1 kg 84.4 kg Daily Fluid Goal:: even GI Nutrition: Nutrition - recommend bedside swallow eval once extubated and initiation of diet if no concerns Infectious Disease: HIV - follows with Dr. Tompkins at [facility] - last labs due to patient non compliance - HIV quant and T-cell subsets have been ordered - I will make sure these make their way to Dr. Tompkins - prior CD4>500 and an undetectable viral load Hematologic: Anemia - unsure of chronicity - will monitor Neurologic: Sedation/Analgesia - DC fentanyl infusion - fentanyl IV 50mcg prn - can DC propofol once extubated - remains on Precedex 0.2 - can turn off once extubated and settled Endocrine: no acute concerns Lines: PIV Maguire Endotracheal tube Prophylaxis: Lovenox Famotidine - can be stopped after extubation Code Status: Resuscitation Status Full Code Subjective Critical and life-threatening events over the past 24 hours: This is a 52 yo with oxygen dependant COPD who presented to [facility] with respiratory failure. She was found to be in hypoxic and hypercapnic respiratory failure thought to be due to a COPD exacerbation. Based on her blood gases, it appears as though she likely has chronic CO2 retention. She failed BiPAP at [facility] and ultimately was intubated. She was then transferred to [facility]. She has been treated with inhalers, bronchodilators and steroid therapy. She does not have any clear signs of infection and her procalcitonin is negative. She follows with Dr. Sundar Tompkins, Infectious Disease at [facility] for HIV and had her last appointment 12/30/21. She was diagnosed in 2011 with an initial CD4 of 409 and a viral load of 126, 000. Her genotype showed no resistance and was initially started on Complera, but was switched to Odefsey in 2015. Her CD4 in August 2018 was 589 at 39% and a viral load in August 2017 was undetectable. There was note of frequent visit no-shows and he agin recommended labwork. Immunizations seemed to be up to date aside from Zoster, which I am unsure if she has gotten this. She seems to have improved significantly and is likely ready for extubation today. Exam Narrative Exam Narrative: Gen: NAD, intubated HENT: PERRL Chest: No respiratory distress, normal appearance of chest, clear to auscultation bilaterally, no crackles or wheezes Heart: regular rate and rhythym, no murmurs, rubs or gallops Abdomen: Non-distended, soft, non tender Extremities: No clubbing, edema, cyanosis, rashes Neuro: intubated and sedated Psych: intubated and sedated Most Recent VS/Results Last Vital Signs Temp 36.8 C 05/29/22 05:00 Pulse 86 05/29/22 05:49 Resp 18 05/29/22 05:50 BP 153/98 H 05/29/22 05:49 Pulse Ox 93 05/29/22 05:50 Laboratory Results - last 24 hr 05/28/22 05/28/22 05/28/22 07:15 08:10 09:10 WBC 5.44 RBC 2.32 L Hgb 8.5 L Hct 27.1 L MCV 117 H MCH 36.6 H MCHC 31.4 L RDW 14.1 Plt Count 226 MPV 8.4 Immature Gran % 0.7 Neutrophils % 94.9 Lymphocytes % 3.1 Monocytes % 1.3 Eosinophils % 0.0 Basophils % 0.0 Nucleated RBC % 0.0 Absolute Neutrophils 5.16 Absolute Lymphocytes 0.17 L Absolute Monocytes 0.07 L Absolute Eosinophils 0.00 Absolute Basophils 0.00 ABG Sample Site Left Radial ABG pH 7.29 L ABG pCO2 65 H* ABG pO2 66 L ABG HCO3 31 H ABG Total CO2 30 H ABG O2 Saturation 94 L ABG Base Excess 4 H VBG pH VBG pCO2 VBG pO2 VBG HCO3 VBG Total CO2 VBG O2 Saturation VBG Base Excess Oxygen Liter Flow PEEP 8, SPONT FiO2 40 Sodium Potassium Chloride Carbon Dioxide Anion Gap BUN Creatinine Est GFR (CKD-EPI 2020) Glucose Calcium Phosphorus Magnesium Procalcitonin Urine Color Urine Clarity Urine pH Ur Specific [place] Urine Protein Urine Ketones Urine Blood Urine Nitrite Urine Bilirubin Urine Urobilinogen Ur Leukocyte Esterase Urine RBC Urine WBC Ur Epithelial Cells Urine Crystals Urine Bacteria Urine Casts Urine Mucus Ur Culture Indicated? Urine Glucose Add-On Test Request DONE 05/28/22 05/28/22 05/28/22 09:10 09:20 09:27 WBC RBC Hgb Hct MCV MCH MCHC RDW Plt Count MPV Immature Gran % Neutrophils % Lymphocytes % Monocytes % Eosinophils % Basophils % Nucleated RBC % Absolute Neutrophils Absolute Lymphocytes Absolute Monocytes Absolute Eosinophils Absolute Basophils ABG Sample Site ABG pH ABG pCO2 ABG pO2 ABG HCO3 ABG Total CO2 ABG O2 Saturation ABG Base Excess VBG pH 7.33 VBG pCO2 57 H VBG pO2 62 VBG HCO3 31 H VBG Total CO2 29 VBG O2 Saturation 94 VBG Base Excess 5 H Oxygen Liter Flow FiO2 Sodium Potassium Chloride Carbon Dioxide Anion Gap BUN Creatinine Est GFR (CKD-EPI 2020) Glucose Calcium Phosphorus 2.1 L Magnesium Procalcitonin Urine Color Yellow Urine Clarity Sl Cloudy Urine pH 6.0 Ur Specific [place] 1.025 Urine Protein 30 H Urine Ketones Negative Urine Blood Large H Urine Nitrite Negative Urine Bilirubin Negative Urine Urobilinogen 0.2 Ur Leukocyte Esterase Negative Urine RBC >50 H Urine WBC Negative Ur Epithelial Cells Rare Urine Crystals Negative Urine Bacteria Negative Urine Casts 0-1 RBC Urine Mucus Negative Ur Culture Indicated? No Urine Glucose Negative Add-On Test Request 05/28/22 05/28/22 05/29/22 09:27 09:27 05:35 WBC RBC Hgb Hct MCV MCH MCHC RDW Plt Count MPV Immature Gran % Neutrophils % Lymphocytes % Monocytes % Eosinophils % Basophils % Nucleated RBC % Absolute Neutrophils Absolute Lymphocytes Absolute Monocytes Absolute Eosinophils Absolute Basophils ABG Sample Site ABG pH ABG pCO2 ABG pO2 ABG HCO3 ABG Total CO2 ABG O2 Saturation ABG Base Excess VBG pH VBG pCO2 VBG pO2 VBG HCO3 VBG Total CO2 VBG O2 Saturation VBG Base Excess Oxygen Liter Flow FiO2 Sodium 137 Potassium 4.3 Chloride 103 Carbon Dioxide 31.6 Anion Gap 2.4 L BUN 12 Creatinine 0.8 Est GFR (CKD-EPI 2020) 89.15 Glucose 163 H Calcium 9.0 Phosphorus Magnesium Procalcitonin < 0.1 Urine Color Urine Clarity Urine pH Ur Specific [place] Urine Protein Urine Ketones Urine Blood Urine Nitrite Urine Bilirubin Urine Urobilinogen Ur Leukocyte Esterase Urine RBC Urine WBC Ur Epithelial Cells Urine Crystals Urine Bacteria Urine Casts Urine Mucus Ur Culture Indicated? Urine Glucose Add-On Test Request DONE 05/29/22 05/29/22 05/29/22 05:35 05:35 05:35 WBC RBC Hgb Hct MCV MCH MCHC RDW Plt Count MPV Immature Gran % Neutrophils % Lymphocytes % Monocytes % Eosinophils % Basophils % Nucleated RBC % Absolute Neutrophils Absolute Lymphocytes Absolute Monocytes Absolute Eosinophils Absolute Basophils ABG Sample Site ABG pH ABG pCO2 ABG pO2 ABG HCO3 ABG Total CO2 ABG O2 Saturation ABG Base Excess VBG pH 7.43 H VBG pCO2 48 VBG pO2 187 VBG HCO3 32 H VBG Total CO2 VBG O2 Saturation VBG Base Excess 7 H Oxygen Liter Flow FiO2 Sodium Potassium Chloride Carbon Dioxide Anion Gap BUN Creatinine Est GFR (CKD-EPI 2020) Glucose Calcium Phosphorus 2.9 Magnesium 2.0 Procalcitonin Urine Color Urine Clarity Urine pH Ur Specific [place] Urine Protein Urine Ketones Urine Blood Urine Nitrite Urine Bilirubin Urine Urobilinogen Ur Leukocyte Esterase Urine RBC Urine WBC Ur Epithelial Cells Urine Crystals Urine Bacteria Urine Casts Urine Mucus Ur Culture Indicated? Urine Glucose Add-On Test Request Review of Systems Unobtainable due to endotracheal tube Time spent with patient Time spent in Critical Care: 65 Time spent in Critical care included: Performing procedures not included in c.c time, Chart review, Documenting critically ill care, Time at immediate bedside and Discussing critically ill care with other medical staff Multi-Disciplinary Checklist Lines/Tubes CENTRAL LINE: no ARTERIAL LINE: no MAGUIRE: yes, Maguire Day#: 2 ENDOTRACHEAL TUBE: yes, Endotracheal Tube Day#: 2 Sedation: yes, Sedation Vacation: yes Head of Bed@30 degrees: yes Spontaneous Breathing Trial: yes ICU Maintenance GLUCOSE 140-180mg/dL: yes NUTRITION AT GOAL: no, Reason/Intervention: plan for extubation today - will provide diet if swallow trial passed PRESSURE ULCER: no RESTRAINTS: yes, Reviewed Necessity: Yes ANTIBIOTICS(if yes, consider Stewardship): No Social Issues FAMILY UPDATED: no, Reason/Intervention: defer to hospitalist PT/OT: no, Reason/Intervention: not appropriate currently, will readdress once extubated GOALS/DISPOSITION/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 SUPERVISOR: yes CODE STATUS: Full Prophylaxis DVT PROPHYLAXIS: yes GI PROPHYLAXIS: yes, Indication: intubated Pocus Exam Limited Cardiac Exam DATE OF EXAM: 05/29/22 TIME OF EXAM: 07:15 PROVIDER THAT PERFORMED THE STUDY: Sirena Aranda IS THIS A REPEAT EXAM DURING THIS ENCOUNTER: no REASON FOR EXAM: Hypoxia VISUALIZED STRUCTURES: four chambers, left atrium, left ventricle, right atrium, right ventricle, mitral valve, Interventricular septum and IVC VIEW OBTAINED: Apical 4-Chamber, Parasternal long-axis and Subxiphoid PERTINENT FINDINGS/IMPRESSION: LV dysfunction :mild and Plethoric IVC; no IVC inspiratory collapsability, No pericardial effusion, No RV dilation and No RV dysfunction DIFFERENTIAL DIAGNOSES: Possible borderline low LVEF Exam complete
[2022-05-29 07:01] LABS: Diff Comment RBC Morph Reviewed
[2022-05-29 07:02] LABS: Macrocytosis 2+; Polychromasia Present; Stomatocytes 2+
[2022-05-29] MEDS: Normal Saline Flush 10 ML SYR IVP ×3 (07:20→23:38)
[2022-05-29] MEDS: Furosemide 40 MG/4 ML VIAL IVP (07:20)
[2022-05-29] MEDS: Budesonide/Formoterol 160/4.5 6 GM 60 PUFF INH IH ×2 (07:53→19:54)
--- NOTE | 2022-05-29 08:00 | RT.EKG_ITS ---
APPROVED REPORT Exam: Resting ECG Reason for Exam: QTC monitoring Patient Location: I HR:100 bpm ECG Measurements Heart Rate 100 AXIS FL 137 P 65 QRSd 91 QRS 48 QT 368 T 63 QTc 475 Conclusion Sinus tachycardia...rate> 99 Normal Electrocardiogram
--- NOTE | 2022-05-29 08:25 | PGE_ITS ---
Date of Service Date of service: 05/29/22 Time of Service: 08:25 Assessment and Plan Assessment and plan (1) Acute respiratory failure with hypoxia and hypercapnia: Status: Acute Assessment and plan: acute hypoxic/hypercarbic resp. failure in patient w/known COPD and/or asthma who is a current smoker. Patient and her family deny any overdose of narcotics. I think her respiratory failure was secondary to COPD exacerbation w/ possible bronchitic component. Drug screen was negative. She is doing well w/weaning and now is on SBT. I think she is ready for extubation. I will continue iv corticosteroids, bronchodilators; repeat VBG post extubation. Will add azithromycin or doxycycline. Azithromycin preferred if QTC is acceptable. No EKG was done on admission here at [facility] however, EKG from [facility] demonstrated NSR w/ QTC of 437 and per conveyor monitor her QTC is 350 msec. (2) Acute exacerbation of COPD with asthma: Status: Acute Assessment and plan: As above (3) HIV (human immunodeficiency virus infection): Status: Chronic Assessment and plan: Continue home odefsey, HIV quantification pending (4) DVT prophylaxis: Status: Acute Assessment and plan: lovenox (5) On famotidine prophylaxis: Status: Acute (6) Discharge planning issues: Status: Acute Assessment and plan: Full code Admit to the ICU. critical care time 45 minutes including examination of patient, discussion w/ Dr. Aranda, nursing, RT, patient's family and reviewing data, placing orders and documentation. Subjective Subjective Interval history since last seen: Patient remains intubated on the ventilator. Propofol has been discontinued and Precedex is being weaned down. Patient is waking up and responsive to commands. Her family is here including her daughter as well as her [id number]. Patient lives with her son and D-in-L. The daughter in law reported patient did fine up until Thursday morning when she was found to be confused slurring her words and not acting normal she was tachypneic and short of breath. Patient has home oxygen which she uses prn when dyspneic at 5 lpm. This episode had been preceded the day before w/ some increased dyspnea that resolved w/ her inhalers and use of her oxygen. Exam Narrative Exam Narrative: Patient is intubated on a ventilator and tolerating weaning. She wakes up responds to commands nods yes and no to questions uses hand signals. Lungs with some fine end expiratory wheezing particularly heard at both lung bases Heart is regular rate and rhythm Abdomen soft nontender nondistended normal bowel sounds Extremities no peripheral cyanosis or edema she has normal pedal pulses. She has some bruising over the dorsum of her left hand as well as her arms from previous blood draws and IV starts. No induration no redness. Neuro exam no focal motor or sensory deficits no obvious cranial nerve deficits. She responds to commands Objective Last Vital Signs Temp 36.8 C 05/29/22 05:00 Pulse 86 05/29/22 05:49 Resp 30 H 05/29/22 07:45 BP 149/93 H 05/29/22 07:45 Pulse Ox 96 05/29/22 07:45 Laboratory Results - last 24 hr 05/28/22 05/28/22 05/28/22 09:10 09:10 09:20 WBC RBC Hgb Hct MCV MCH MCHC RDW Plt Count MPV Immature Gran % Neutrophils % Lymphocytes % Monocytes % Eosinophils % Basophils % Nucleated RBC % Absolute Neutrophils Absolute Lymphocytes Absolute Monocytes Absolute Eosinophils Absolute Basophils RBC Morphology Polychromasia Macrocytosis Stomatocytes VBG pH VBG pCO2 VBG pO2 VBG HCO3 VBG Total CO2 VBG O2 Saturation VBG Base Excess Sodium Potassium Chloride Carbon Dioxide Anion Gap BUN Creatinine Est GFR (CKD-EPI 2020) Glucose Calcium Phosphorus 2.1 L Magnesium Procalcitonin Urine Color Yellow Urine Clarity Sl Cloudy Urine pH 6.0 Ur Specific Hamilton 1.025 Urine Protein 30 H Urine Ketones Negative Urine Blood Large H Urine Nitrite Negative Urine Bilirubin Negative Urine Urobilinogen 0.2 Ur Leukocyte Esterase Negative Urine RBC >50 H Urine WBC Negative Ur Epithelial Cells Rare Urine Crystals Negative Urine Bacteria Negative Urine Casts 0-1 RBC Urine Mucus Negative Ur Culture Indicated? No Urine Glucose Negative Add-On Test Request DONE 05/28/22 05/28/22 05/28/22 09:27 09:27 09:27 WBC RBC Hgb Hct MCV MCH MCHC RDW Plt Count MPV Immature Gran % Neutrophils % Lymphocytes % Monocytes % Eosinophils % Basophils % Nucleated RBC % Absolute Neutrophils Absolute Lymphocytes Absolute Monocytes Absolute Eosinophils Absolute Basophils RBC Morphology Polychromasia Macrocytosis Stomatocytes VBG pH 7.33 VBG pCO2 57 H VBG pO2 62 VBG HCO3 31 H VBG Total CO2 29 VBG O2 Saturation 94 VBG Base Excess 5 H Sodium Potassium Chloride Carbon Dioxide Anion Gap BUN Creatinine Est GFR (CKD-EPI 2020) Glucose Calcium Phosphorus Magnesium Procalcitonin < 0.1 Urine Color Urine Clarity Urine pH Ur Specific Hamilton Urine Protein Urine Ketones Urine Blood Urine Nitrite Urine Bilirubin Urine Urobilinogen Ur Leukocyte Esterase Urine RBC Urine WBC Ur Epithelial Cells Urine Crystals Urine Bacteria Urine Casts Urine Mucus Ur Culture Indicated? Urine Glucose Add-On Test Request DONE 05/29/22 05/29/22 05/29/22 05:35 05:35 05:35 WBC 9.69 RBC 2.59 L Hgb 9.5 L Hct 29.1 L MCV 112 H D MCH 36.7 H MCHC 32.6 RDW 14.2 Plt Count 253 MPV 9.6 Immature Gran % 0.7 Neutrophils % 91.1 Lymphocytes % 3.2 Monocytes % 4.9 Eosinophils % 0.0 Basophils % 0.1 Nucleated RBC % 0.0 Absolute Neutrophils 8.83 H Absolute Lymphocytes 0.31 L Absolute Monocytes 0.47 Absolute Eosinophils 0.00 Absolute Basophils 0.01 RBC Morphology See Below Polychromasia Present Macrocytosis 2+ Stomatocytes 2+ VBG pH 7.43 H VBG pCO2 48 VBG pO2 187 VBG HCO3 32 H VBG Total CO2 VBG O2 Saturation VBG Base Excess 7 H Sodium 137 Potassium 4.3 Chloride 103 Carbon Dioxide 31.6 Anion Gap 2.4 L BUN 12 Creatinine 0.8 Est GFR (CKD-EPI 2020) 89.15 Glucose 163 H Calcium 9.0 Phosphorus Magnesium Procalcitonin Urine Color Urine Clarity Urine pH Ur Specific Hamilton Urine Protein Urine Ketones Urine Blood Urine Nitrite Urine Bilirubin Urine Urobilinogen Ur Leukocyte Esterase Urine RBC Urine WBC Ur Epithelial Cells Urine Crystals Urine Bacteria Urine Casts Urine Mucus Ur Culture Indicated? Urine Glucose Add-On Test Request 05/29/22 05/29/22 05:35 05:35 WBC RBC Hgb Hct MCV MCH MCHC RDW Plt Count MPV Immature Gran % Neutrophils % Lymphocytes % Monocytes % Eosinophils % Basophils % Nucleated RBC % Absolute Neutrophils Absolute Lymphocytes Absolute Monocytes Absolute Eosinophils Absolute Basophils RBC Morphology Polychromasia Macrocytosis Stomatocytes VBG pH VBG pCO2 VBG pO2 VBG HCO3 VBG Total CO2 VBG O2 Saturation VBG Base Excess Sodium Potassium Chloride Carbon Dioxide Anion Gap BUN Creatinine Est GFR (CKD-EPI 2020) Glucose Calcium Phosphorus 2.9 Magnesium 2.0 Procalcitonin Urine Color Urine Clarity Urine pH Ur Specific Hamilton Urine Protein Urine Ketones Urine Blood Urine Nitrite Urine Bilirubin Urine Urobilinogen Ur Leukocyte Esterase Urine RBC Urine WBC Ur Epithelial Cells Urine Crystals Urine Bacteria Urine Casts Urine Mucus Ur Culture Indicated? Urine Glucose Add-On Test Request PAWSS Have you Been Recently Intoxicated or Drunk Within the Last 30 days?: No Have you Ever Experienced Previous Episodes of Alcohol Withdrawal?: No Have you ever Experienced Withdrawal Seizures?: No Have you ever undergone Alcohol Rehabilitation Treatment (i.e, inpt ot outpatient treatment programs)?: No Have you ever Experienced Blackouts?: No Have you ever Combined Alcohol with other Downers within the last 90 days?: No Have you ever Combined Alcohol with any other Substance of Abuse during the last 90 days?: No Positive Blood Alcohol level on Presentation? [PCS.BAL]: No Evidence of Increased Autonomic Activity (i.e. HR>120, tremor, sweating, agitation, nausea)?: Yes Result: 1 Time Spent with Patient Time Spent with Patient: 35-49 minutes Time was spent: preparing to see the patient(eg.review tests), obtaining and/or reviewing separately otained hiistory, ordering medications,tests, procedures, referring, communicating with other health director of career resources (Dr. Aranda, nursing, R.T.), indepentently interpreting results, counseling the patient (family) and care coordination
[2022-05-29] MEDS: methylPREDNISolone SUCC 125 MG VIAL 40 MG IVP (08:38)
[2022-05-29 09:21] LABS: BE (Venous) 12 mmol/L (-2-3); HCO3 (Venous) 36 mmol/L (23-28); pCO2 (Venous) 50 mmHg (41-51); pH (Venous) 7.46 (7.31-7.41); pO2 (Venous) 106 mmHg
[2022-05-29 09:25] LABS: O2 Sat (Venous) > 99 %
--- NOTE | 2022-05-29 10:12 | DI.US_ITS ---
APPROVED REPORT EXAM: Comprehensive 2D, Doppler, and color-flow Echocardiogram Patient Location: In-Patient Room/Bed: QBW219 [employer]: Alayna Alcocer RDCS (AE) Indications: Evaluate LV and RV function, hypoxemic resp failure Other Information Study Quality: Poor. Technically limited study due to body habitus, inability to position patient exa m done supine. Patient unable to perform repspiration maneuvers.. Conclusion Suboptimal and technically limited study Left ventricle appears grossly normal in size. Systolic function is mildly reduced with an estimated ejection fraction of 45 to 50%. No segmental wall motion abnormalities are identified Right ventricle appears normal in size and systolic function Both atria are normal in size No structural or hemodynamically significant valvular disease is seen Wall motion Left Ventricle The left ventricle is normal size. Left ventricular systolic function is mildly decreased. There is n ormal left ventricular wall thickness. There is global hypokinesis of the left ventricle. Regional wa ll motion abnormalities cannot be excluded. There is no ventricular septal defect visualized. LVEF is 45 to 50% Right Ventricle Right ventricle appears grossly normal in size Right ventricular systolic function appears normal Atria The left atrium size is normal. The right atrium size is normal. The interatrial septum is intact wit h no evidence for an atrial septal defect. Aortic Valve The aortic valve is normal in structure. Aortic valve appears trileaflet in subcostal imaging. Ther e is no aortic valvular stenosis. No aortic regurgitation is present. Mitral Valve The mitral valve is normal in structure. No evidence of mitral valve stenosis. Trace to mild mitral regurgitation. Tricuspid Valve The tricuspid valve is normal in structure. There is no tricuspid valve stenosis. Unable to assess PA pressure. Pulmonic Valve Pulmonic valve is not well visualized. There is no pulmonic valvular stenosis. There is no pulmonic v alvular regurgitation. Great Vessels The aortic root is normal in size. Ascending aorta is not well visualized. IVC is normal in size and collapses >50% with inspiration. Pericardium There is no pericardial effusion. 2D Dimensions IVSD d PLAX 0.82 cm F: 0.6-1.0 LV Vol A2C d MOD 132.5 mL LVPW d PLAX 0.86 cm F: 0.6 - 1.0 LV Vol A4C d MOD 102.3 mL LVID d PLAX 5.10 cm F: 3.8 - 5.2 LA vol/ BSA A4C s A-L 16.7 mL/m2 LVDs 3.95 cm F: 2.2 - 3.5 LA Area A4C s MOD 12.74 cm2 Ao Root d 2.73 cm F: 2.7 - 3.3 LV EF A4C MOD 44.2 % LV EF Teichholz 44.5 % LV EF A2C MOD 44.3 % LVEF (Smith's) 45.36 % F: 54 - 74 LV EF Biplane MOD 45.4 % LV Volume 92.34 mL F: 46 - 106 SV 54.63 mL LV Volume Index 49.11 mL/m2 F: 29 - 61 SV Index 29.14 mL/m2 LV Vol Biplane MOD 120.4 mL FS 22.15 % M-Mode TAPSE 2.70 cm (M/F) >1.7 LV Diastology MV E' medial 0.078 (>0.07 m/s) E/A Ratio 1.0 LV E/e MED 13.10 (<14) MV E Vmax 1.03 (0.4-1.3 m/s) MV E' lateral 0.077 (>0.1 m/s) MV A Vmax 1.05 (0.4-1.3 m/s) LV E/e LAT 13.25 (<14) MV E/A Ratio 0.94 MV E/E' medial 13.13 MV E/E' lateral 13.29 Aortic Valve LVOT Area 2.72 cm2 AoV Area Vmax 2.28 cm2 LVOT Vmax 1.17 m/s AoV Area/ BSA (Vmax) 1.22 cm2/m2 LVOT Mean Abe. 0.77 m/s SAGRARIO Mean Abe. 2.09 cm2 LVOT Peak Grad 5.5 mmHg SAGRARIO Mean Abe. Index 1.12 cm2/m2 LVOT Mean Grad 2.8 mmHg LVOT VTI 0.176 m LVOT Diam s 1.85 cm AoV Vmax 1.40 m/s Velocity Ratio 0.84 AoV Mean Abe. 1.01 m/s AoV Peak Grad 7.8 mmHg LVOT SV 47.83 mL AoV Mean Grad 4.5 mmHg AoV VTI 0.226 m AoV Area VTI 2.11 cm2 AoV Area/ BSA (VTI) 1.13 cm/m2 Mitral Valve MV DT 223 (160-240 msec) MV PHT 65 msec MV Area PHT 3.40 cm2 MV VTI 0.282 m MV Area VTI 1.70 (4.0-6.0 cm2) Pulmonary Valve PV Vmax 1.08 (0.5-1.5 m/s) RVOT Peak Gr. 2.23 mmHg PV Peak Grad 4.7 mmHg RVOT Mean Gr. 1.05 mmHg PV Mean Grad 2.7 mmHg RVOT VTI 0.119 m PV VTI 0.172 m RVOT Vmax 0.75 m/s
--- NOTE | 2022-05-29 10:13 | PDOC.CMPRO ---
- If Service Date Differs Date of service: 05/29/22 Time of Service: 10:13 Care Management Progress Note S/O: Adele was lying in bed when CM met with her. She was successfully extubated this morning, and is currently on high flow O2. She stated that she is on 4L O2 at baseline, but is otherwise very independent. She stated that she is on SSDI, and lives with her son, daughter in law, and grandson. She reported that she does not feel that she needs any additional support at home upon discharge. CM will continue to follow. A: Adele is a 52 year old female admitted to [facility] on 05/27/22 for acute hypoxic and hypercarbic respiratory failure. P: Adele continues to be closely monitored and treated. Anticipate attempts will be made at extubation, dependent on MD recommendations. CM continues to follow.
[2022-05-29 12:02] LABS: HIV 1 RNA Qualitative Detected copies/mL (Undetected); HIV 1 RNA Quantitative <20 copies/mL (Undetected)
[2022-05-29] MEDS: Azithromycin 250 MG TAB 500 MG PO (12:56)
[2022-05-29] MEDS: Albuterol HFA 8 GM 60 PUFF INH IH ×2 (16:03→19:52)
--- NOTE | 2022-05-29 16:43 | CHAPLAIN ---
I had a brief conversation with Adele today following her extubation. She if from the [facility]. Her daughter and grandchildren made a post with with the grandchildren's photos and lots of tiara on it for Adele to look at.
[2022-05-29] MEDS: FAMOTIDINE 20 MG in Normal Saline 100 ML 400 MG IVPB (21:34)
[2022-05-29] MEDS: Enoxaparin 40 MG/0.4 ML SYR SC (22:02)
[2022-05-29 22:15] LABS: Rheumatoid Factor <8.6 IU/mL (<12.0)
[2022-05-30] VITALS (36 sets, daily range): BP systolic 124–170; BP diastolic 74–99; PULSE 93–125; RESP 15–28; TEMP 31–37; O2SAT 89–97
--- NOTE | 2022-05-30 05:58 | NUR.NOTE ---
Nursing Note: Patient awake. Pulled ID bracelet off and requested a new one secondary to it was too big. ID band replaced attempted to provide education on splinting with coughing and patient stated, I just want to go back to sleep and rolled over onto her right side.
[2022-05-30 06:26] LABS: Abs Immature Grans 0.04 10^3/uL (0.0-0.06); Absolute Eosinophil Count 0.01 10^3/uL (0.0-0.7); Absolute Lymphocyte Count 1.37 10^3/uL (1.2-3.4); Absolute Monocyte Count 0.82 10^3/uL (0.1-0.8); Absolute Neutrophil Count 6.72 10^3/uL (1.2-6.7); Eosinophils % 0.1; Immature Grans % 0.4; Lymphocytes % 15.3; MCH 36.3 pg (27.0-33.0); MCHC 32.1 % (32.0-36.0); MCV 113 fL (80-95); MPV 8.7 fL (8.0-11.0); Monocytes % 9.2; Platelet Count 267 10^3/uL (130-400); RBC 2.48 10^6/uL (3.93-5.22); RDW 14.2 % (11.7-14.6); RDW-SD 59.2 fL; WBC 8.96 10^3/uL (4.4-10.8)
[2022-05-30 06:37] LABS: Anion Gap 2.3 mmol/L (3-11); BUN 15 mg/dL (7-18); CO2 40.7 mmol/L (21.0-32.0); CREATININE 0.8 mg/dL (0.55-1.02); Calcium 8.4 mg/dL (8.5-10.1); Chloride 103 mmol/L (98-107); Estimated GFR 89.15 (mL/min/1.73m2); Glucose 95 mg/dL (74-106); Sodium 146 mmol/L (136-145)
[2022-05-30 06:42] LABS: Potassium 2.8 mmol/L (3.5-5.1)
[2022-05-30] MEDS: Normal Saline Flush 10 ML SYR IVP ×2 (07:34→08:32)
[2022-05-30] MEDS: POTASSIUM CHLORIDE 10 MEQ/100 ML BAG 100 MEQ IVPB (07:35)
[2022-05-30] MEDS: Budesonide/Formoterol 160/4.5 6 GM 60 PUFF INH IH ×2 (08:22→19:18)
[2022-05-30] MEDS: Albuterol HFA 8 GM 60 PUFF INH IH ×4 (08:23→19:17)
[2022-05-30] MEDS: Potassium Chloride 20 MEQ TABCR 40 MEQ PO ×2 (08:32→21:03)
[2022-05-30] MEDS: Azithromycin 250 MG TAB PO (08:32)
[2022-05-30 08:39] LABS: Cyclic Citrullinated Peptide <2.5 U/mL (<5.0)
--- NOTE | 2022-05-30 09:15 | W.PM.PROGNOT ---
Date of Service Date of service: 05/30/22 Time of Service: 09:16 Assessment and Plan Assessment and plan (1) Acute respiratory failure with hypoxia and hypercapnia: Status: Acute Assessment and plan: Due to COPD/asthma exacerbation. Extubated and improving. Due to purulent sputum, started on abx in addition to steroids/nebs/symbicort. O2 weaned to 4L of O2 by NC which is her baseline. Encourage pulmonary toilet. Ambulate patient. Appears to be safe for transfer out of the ICU. (2) Acute exacerbation of COPD with asthma: Status: Acute Assessment and plan: As above (3) HIV (human immunodeficiency virus infection): Status: Chronic Assessment and plan: Continue home odefsey HIV viral load/CD4 counts are still pending. (4) Tobacco abuse: Status: Acute Assessment and plan: Continue nicotine replacement. (5) Hypokalemia: Status: Acute Assessment and plan: Replete; recheck in am (6) DVT prophylaxis: Status: Acute Assessment and plan: lovenox (7) On famotidine prophylaxis: Status: Acute Assessment and plan: As she is on steroids (8) Discharge planning issues: Status: Acute Assessment and plan: Full code Ok to transfer out of the ICU later today. Subjective Subjective Interval history since last seen: Adele feels better today. She remains off the vent. She was transitioned to a regular nasal cannula off of humidified heated high flow NC (neede 30L 40% at night saturating 93-94%). She is back to her baseline 4L now. Her biggest complaint is the IV in her L AC hurting (getting IV potassium through that). Denies dizziness, chest pain, shortness of breath, nausea. Exam Narrative Exam Narrative: General: Pleasant middle-aged female who is sitting up in a chair, A&Ox3, NAD, on 4L of O2 by NC HEENT: EOMI, MMM Heart: RRR, no m/r/g Lungs: coarse expiratory sounds B, no devan wheezing Abdomen: soft, nontender, nondistended Extremities: trace edema BLEs, symmetric, no redness in L AC fossa at site of IV, but it does look puffy. Nursing is removing IV at time of my exam. Objective Last Vital Signs Temp 36.4 C L 05/30/22 04:02 Pulse 108 H 05/30/22 06:00 Resp 26 H 05/30/22 06:01 BP 154/93 H 05/30/22 06:00 Pulse Ox 95 05/30/22 06:01 Laboratory Results - last 24 hr 05/28/22 05/29/22 05/29/22 07:15 09:10 12:55 WBC RBC Hgb Hct MCV MCH MCHC RDW Plt Count MPV Immature Gran % Neutrophils % Lymphocytes % Monocytes % Eosinophils % Basophils % Nucleated RBC % Absolute Neutrophils Absolute Lymphocytes Absolute Monocytes Absolute Eosinophils Absolute Basophils VBG pH 7.46 H VBG pCO2 50 VBG pO2 106 VBG HCO3 36 H VBG Total CO2 VBG O2 Saturation > 99 VBG Base Excess 12 H Sodium Potassium Chloride Carbon Dioxide Anion Gap BUN Creatinine Est GFR (CKD-EPI 2020) Glucose Calcium Magnesium Rheumatoid Factor <8.6 Cyclic Citrull Peptide HIV-1 RNA Quant <20 H HIV-1 RNA Qualitative Detected A 05/29/22 05/30/22 05/30/22 12:55 05:32 05:32 WBC 8.96 RBC 2.48 L Hgb 9.0 L Hct 28.0 L MCV 113 H MCH 36.3 H MCHC 32.1 RDW 14.2 Plt Count 267 MPV 8.7 Immature Gran % 0.4 Neutrophils % 75.0 Lymphocytes % 15.3 Monocytes % 9.2 Eosinophils % 0.1 Basophils % 0.0 Nucleated RBC % 0.0 Absolute Neutrophils 6.72 H Absolute Lymphocytes 1.37 Absolute Monocytes 0.82 H Absolute Eosinophils 0.01 Absolute Basophils 0.00 VBG pH VBG pCO2 VBG pO2 VBG HCO3 VBG Total CO2 VBG O2 Saturation VBG Base Excess Sodium 146 H Potassium 2.8 L* D Chloride 103 Carbon Dioxide 40.7 H Anion Gap 2.3 L BUN 15 Creatinine 0.8 Est GFR (CKD-EPI 2020) 89.15 Glucose 95 Calcium 8.4 L Magnesium Rheumatoid Factor Cyclic Citrull Peptide <2.5 HIV-1 RNA Quant HIV-1 RNA Qualitative 05/30/22 05:32 WBC RBC Hgb Hct MCV MCH MCHC RDW Plt Count MPV Immature Gran % Neutrophils % Lymphocytes % Monocytes % Eosinophils % Basophils % Nucleated RBC % Absolute Neutrophils Absolute Lymphocytes Absolute Monocytes Absolute Eosinophils Absolute Basophils VBG pH VBG pCO2 VBG pO2 VBG HCO3 VBG Total CO2 VBG O2 Saturation VBG Base Excess Sodium Potassium Chloride Carbon Dioxide Anion Gap BUN Creatinine Est GFR (CKD-EPI 2020) Glucose Calcium Magnesium 2.0 Rheumatoid Factor Cyclic Citrull Peptide HIV-1 RNA Quant HIV-1 RNA Qualitative PAWSS Have you Been Recently Intoxicated or Drunk Within the Last 30 days?: No Have you Ever Experienced Previous Episodes of Alcohol Withdrawal?: No Have you ever Experienced Withdrawal Seizures?: No Have you ever undergone Alcohol Rehabilitation Treatment (i.e, inpt ot outpatient treatment programs)?: No Have you ever Experienced Blackouts?: No Have you ever Combined Alcohol with other Downers within the last 90 days?: No Have you ever Combined Alcohol with any other Substance of Abuse during the last 90 days?: No Positive Blood Alcohol level on Presentation? [PCS.BAL]: No Evidence of Increased Autonomic Activity (i.e. HR>120, tremor, sweating, agitation, nausea)?: Yes Result: 1 Multi-Disciplinary Checklist Lines/Tubes CENTRAL LINE: no ARTERIAL LINE: no MAGUIRE: no ENDOTRACHEAL TUBE: no ICU Maintenance GLUCOSE 140-180mg/dL: yes NUTRITION AT GOAL: yes PRESSURE ULCER: no RESTRAINTS: no ANTIBIOTICS(if yes, consider Stewardship): Yes Social Issues FAMILY UPDATED: no, Reason/Intervention: Patient is able to update family PT/OT: yes GOALS/DISPOSITION/LUBRICATOR GRANULATOR: yes CODE STATUS: Full Prophylaxis DVT PROPHYLAXIS: yes GI PROPHYLAXIS: yes, Indication: on steroids Time Spent with Patient Time Spent with Patient: 35-49 minutes Time was spent: preparing to see the patient(eg.review tests), obtaining and/or reviewing separately otained hiistory, ordering medications,tests, procedures, referring, communicating with other health family day care worker, indepentently interpreting results, counseling the patient and care coordination
--- NOTE | 2022-05-30 10:09 | CMPROGNOTE_ITS ---
- If Service Date Differs Date of service: 05/30/22 Time of Service: 10:09 Care Management Progress Note S/O: Adele remains inpatient on high flow O2. She stated that she is on 4L O2 at baseline, but is otherwise very independent. She stated that she is on SSDI, and lives with her son, daughter in law, and grandson. She reported that she does not feel that she needs any additional support at home upon discharge. CM will continue to follow. A: Adele is a 52 year old female admitted to [facility] on 05/27/22 for acute hypoxic and hypercarbic respiratory failure. P: Adele continues to be closely monitored and treated. Anticipate she will return home when ready per MD, resume home O2 use and transport with family. CM continues to follow.
[2022-05-30] MEDS: Lactated Ringers 1,000 ML 125 ML IV (10:20)
--- NOTE | 2022-05-30 11:19 | PT.INIE ---
Date of service: 05/30/22 Time of Service: 10:28 PT Notes Visit Reasons: Acute Hypoxic and Hypercarbic Respitory Failure, Physical Therapy Inpatient Initial Evaluation Date: 05/30/2022 Referring Doctor: Silvana Guzman MD PT Orders: PT CONSULT: Limited ability Precautions: Fall. Standard. Activity as tolerated. On 4L of oxygen at baseline. Patient Profile/Admitting Diagnosis: Jamie is a 52-year-old female who presented to the ED shaky, altered, and with nonsensical speech. Patient is admitted for management of acute respiratory failure with hypoxia and hypercapnia, COPD exacerbation with asthma, acute respiratory acidosis, positive HIV, tobacco abuse, and hypokalemia. Patient was extubated on 05/30/2022 and was cleared for physical therapy for assessment of mobility status and safety of discharge. PMHX: All Active Problems?(Updated 05/27/22 @ 22:39 by Silvana Guzman MD) Discharge planning issues (Acute) DVT prophylaxis (Acute) Acute respiratory acidosis (Acute) Acute respiratory failure with hypoxia and hypercapnia (Acute) Acute exacerbation of COPD with asthma (Acute) Tendinitis of left rotator cuff (Acute) Swollen feet (Acute) Squamous cell carcinoma in situ (Acute) unknown location Restless legs (Acute) Posttraumatic stress disorder (Acute) Nicotine dependence with current use (Acute) Migraine (Chronic) Kidney stone (Chronic) Insomnia (Acute) GERD (gastroesophageal reflux disease) (Chronic) Elevated blood pressure reading (Acute) Dyspnea (Acute) Depressive disorder (Chronic) Bipolar disorder (Acute) Back problem (Acute) Asthma (Chronic) Arthritis (Acute) Opioid abuse (Acute) Illicit drug use (Acute) Chronic respiratory failure with hypoxia, on home O2 therapy (Acute) COPD (chronic obstructive pulmonary disease) (Chronic) HIV (human immunodeficiency virus infection) (Chronic) Surgical History?(Updated 05/27/22 @ 20:32 by Silvana Guzman MD) H/O endoscopy 06/11/2011 History of excision of lesion Hx of colonoscopy 04/16/2011 Hx of hysterectomy 01/09/2002 Social History/Home Situation: Lives with son and son's family in a private home with no stairs to enter. Independent with all aspects of ADLs prior to admission. Misses her grandkids so much she hopes to go home whenever cleared by MD. Equipment Owned/DME: Oxygen supplementation at home Subjective: Does not think she needs physical therapy but is agreeable to mobility assessment to demonstrate she does not need any equipment nor home health PT services. Objective: General Observation: Seated at edge of bed. Telemetry monitoring in place. Oxygen supplementation at 4 L/min via NC. Mental Status: Alert and oriented as to person, place, time, and purpose. Able to pay attention, focus, and respond appropriately. Pain: Denies Vital Signs: Oxygen saturation low of 87% during ambulation activity and not high of 97% on 4 L/min ROM: Right Upper Extremity: Shoulder Flexion WFL. Shoulder abduction WFL. Elbow flexion WFL. Wrist flexion WFL. Functional opening and closing of hand WFL. Left Upper Extremity: Shoulder Flexion WFL. Shoulder abduction WFL. Elbow flexion WFL. Wrist flexion WFL. Functional opening and closing of hand WFL. Right Lower Extremity: Hip flexion WFL. Hip abduction WFL. Knee flexion WFL. Ankle dorsiflexion WFL. Ankle plantarflexion WFL. Left Lower Extremity: Hip flexion WFL. Hip abduction WFL. Knee flexion WFL. Ankle dorsiflexion WFL. Ankle plantarflexion WFL. Strength: Right Upper Extremity: Shoulder flexors 4/5. Shoulder abductors 4/5. Elbow flexors 5/5. Elbow extensors 5/5. [place] strong. Left Upper Extremity: Shoulder flexors 4/5. Shoulder abductors 4/5. Elbow flexors 5/5. Elbow extensors 5/5. [place] strong. Right Lower Extremity: Hip flexors 4/5. Hip abductors 4/5. Knee flexors 5/5. Knee extensors 5/5. Ankle dorsiflexors 5/5. Ankle plantarflexors 5/5. Left Lower Extremity: Hip flexors 4/5. Hip abductors 4/5. Knee flexors 5/5. Knee extensors 5/5. Ankle dorsiflexors 5/5. Ankle plantarflexors 5/5. Bed Mobility/Transfers: Supine to sit independent Sit to supine independent Sit to stand independent Stand to sit independent Bed to reclining chair independent Reclining chair to bed independent Gait: Instructed patient with level surface ambulation of 400 feet requiring supervision assist only for line management and cueing for energy conservation techniques and deep breathing exercises. Erica minimally affected by line management and shortness of breath. Able to recover within a minute with deep breathing techniques on 4 L of oxygen. Balance: Static Sitting: Normal Dynamic Sitting: Normal Static Standing: Normal Dynamic Standing: Good Special Tests: Mobility Limitations Standardized Measure [facility] AM-PAC 6 clicks Basic Mobility Inpatient Short Form: Raw Score: 24 CMS Score: 11% deficit Informed Consent/Education: Patient was instructed in purpose of PT consult and plan of care. Agreeable to proceed with established PT POC to achieve personal goals. Assessment: Patient able to be independent in the hallway with no assistive device and with oxygen supplementation. Requires 4L of o2 per minute via NC at baseline. THERA ACT: Instructed patient with energy conservation techniques and chest expansion exercises with deep breathing activity to maximize ADL performance at home. Patient is assessed as a 76486 low complexity complexity based on the following: History: 52-year-old female with past medical history as indicated above Examination: 0% deficit utilizing the [facility] Mobility Inpatient Short Form Presentation: Stable Decision Makin low complexity Goals: N/A. PT evaluation only and 1 treatment session for functional mobility retraining. Plan of Care/Treatment Plan: N/A. PT evaluation only and 1 treatment session for functional mobility retraining. DISCHARGE RECOMMENDATIONS: [X] Home with no services when medically cleared by hospitalist. No mobility device needed at this time. [] Home with services [specify] [] Home with outpatient PT [] [] SNF for continued rehabilitation [] [] Skilled Nursing Care [] [] SNF versus LTC based on ability to participate and progress [] TREATMENT CODE/TIME: 30892 x 20 minutes, 70209 x 16 minutes beginning at 10:28 AM. Thank you for the opportunity to participate in the care of this patient. Michelle Kidd PT, DPT, CLT [facility] [place], [place]
[2022-05-30 11:58] LABS: Lab Add On Test DONE
[2022-05-30] MEDS: Acetaminophen 325 MG TAB 650 MG PO (13:37)
[2022-05-30 14:51] LABS: ANA Interpretation Negative (Negative)
[2022-05-30 16:33] LABS: 4/8 Ratio 0.45 (>=0.90); Absolute CD3 181 Cells/uL (840-2669); Absolute CD8 122 Cells/uL (154-1097); CD3 66 % (56-84); CD4 20 % (31-64); CD8 44 % (9-39)
[2022-05-30] MEDS: Enoxaparin 40 MG/0.4 ML SYR SC (21:04)
[2022-05-30] MEDS: Famotidine 20 MG TAB PO (21:04)
[2022-05-30] MEDS: Melatonin 3 MG TAB PO (21:04)
[2022-05-31] MEDS: Hydrocortisone 1% CR 30 GM TUBE TP ×2 (00:41→09:30)
[2022-05-31 01:32] LABS: EDDP-by GC-MS Negative ng/mL (Cutoff: 100); Methadone Interpretation Negative.; Methadone-by GC-MS Negative ng/mL (Cutoff: 100)
[2022-05-31 03:13] VITALS: BP 156/78; PULSE 82; RESP 18; TEMP 36.8; O2SAT 93
[2022-05-31 04:50] VITALS: RESP 4
[2022-05-31] MEDS: Levalbuterol 1.25 MG/3 ML UPD VIAL UPD (04:50)
[2022-05-31 05:20] VITALS: RESP 4
[2022-05-31 06:57] LABS: Abs Immature Grans 0.02 10^3/uL (0.0-0.06); Absolute Eosinophil Count 0.03 10^3/uL (0.0-0.7); Absolute Lymphocyte Count 1.34 10^3/uL (1.2-3.4); Absolute Monocyte Count 0.71 10^3/uL (0.1-0.8); Absolute Neutrophil Count 4.17 10^3/uL (1.2-6.7); Eosinophils % 0.5; HCT 26.9 % (36.0-46.0); HGB 8.6 g/dL (11.2-15.7); Immature Grans % 0.3; Lymphocytes % 21.4; MCV 113 fL (80-95); MPV 8.6 fL (8.0-11.0); Monocytes % 11.3; Neutrophils % 66.5; Platelet Count 208 10^3/uL (130-400); RBC 2.39 10^6/uL (3.93-5.22); RDW 13.5 % (11.7-14.6); RDW-SD 56.3 fL; WBC 6.27 10^3/uL (4.4-10.8)
[2022-05-31 07:10] VITALS: BP 130/75; PULSE 94; RESP 17; TEMP 36.8; O2SAT 98
[2022-05-31 07:12] LABS: Anion Gap 0.9 mmol/L (3-11); BUN 11 mg/dL (7-18); CO2 37.1 mmol/L (21.0-32.0); CREATININE 0.7 mg/dL (0.55-1.02); Calcium 8.4 mg/dL (8.5-10.1); Chloride 103 mmol/L (98-107); Estimated GFR 104.65 (mL/min/1.73m2); Glucose 111 mg/dL (74-106); Potassium 3.5 mmol/L (3.5-5.1); Sodium 141 mmol/L (136-145)
[2022-05-31] MEDS: Albuterol HFA 8 GM 60 PUFF INH IH ×2 (08:10→11:42)
[2022-05-31] MEDS: Budesonide/Formoterol 160/4.5 6 GM 60 PUFF INH IH (08:11)
[2022-05-31 08:27] VITALS: O2SAT 97
[2022-05-31] MEDS: predniSONE 20 MG TAB 40 MG PO (09:22)
[2022-05-31] MEDS: Potassium Chloride 20 MEQ TABCR 40 MEQ PO (09:23)
[2022-05-31] MEDS: Azithromycin 250 MG TAB PO (09:23)
[2022-05-31] MEDS: Normal Saline Flush 10 ML SYR IVP (09:23)
[2022-05-31 09:28] VITALS: PULSE 106; PULSE 111; PULSE 97; PULSE 98; RESP 17; RESP 22; O2SAT 86; O2SAT 90; O2SAT 91
--- NOTE | 2022-05-31 10:12 | RESPIRATORY ---
RT supplied patient with pulse oximeter to take home and monitor O2 saturations. RT explained to patient that her optimal SpO2 reading should be 88-92% given her COPD diagnosis, and encouraged pt to use frequently to monitor herself.
--- NOTE | 2022-05-31 11:57 | DSE_ITS ---
Date of service: 05/31/22 Time of Service: 11:57 DS: Diagnosis Discharge Diagnosis (1) Acute on chronic respiratory failure with hypoxia and hypercapnia: Status: Acute (2) Acute exacerbation of COPD with asthma: Status: Acute (3) Pulmonary cavitary lesion: Status: Acute (4) HFrEF (heart failure with reduced ejection fraction): Status: Acute (5) HIV (human immunodeficiency virus infection): Status: Acute Asessment and Plan: new diagnosis (6) Tobacco abuse: Status: Acute (7) Hypokalemia: Status: Resolved (8) Anemia: Status: Chronic Discharge Plan Disposition Patient Disposition: Home Condition: Improving Discharge Details Reason For Visit: Acute Hypoxic and Hypercarbic Respitory Failure, Admit Date/Time: 05/27/22 18:39 Admit Provider: Silvana Guzman Attending Provider: Silvana Guzman Primary Care Provider: Rika Ventura [facility] Course Hospital Course: Ms Rogers is a 52 year old female with PMHx of HIV (viral load undetectable on this admission, CD4/CD8 pending), as well as chronic hypoxic and hypercapnic respiratory failure on 4L of O2 by NC at home, COPD/asthma, and tobacco abuse, who was transferred to [facility] ICU under the hospitalist service from [facility] ER (due to lack of ICU beds at [facility]) for acute on chronic hypoxic hypercapnic respiratory failure due to a COPD exacerbation, requiring intubation. There was no evidence of an acute bacterial process. She tested negative for COVID-19, influenza, and RSV. The patient was treated with mechanical ventilation, systemic steroids, scheduled and prn nebs, symbicort. Azithromycin coverage was added as well. The patient failed a weaning trial on 05/28/22, but passed it on 05/29/22, and was able to be successfully extubated to a humidified heated high flow NC. She was then transitioned to her baseline O2 of 4L by NC on 05/30/22, and today is actually down to room air at rest and 2L on ambulation and with sleep. Her respiratory supply company is being notified of this prescription change. Additionally, the patient was found to have a left upper lobe cavitary lung lesion. The patient had testing for quanteferon gold (pending), histo and blasto urine antigens (pending), as well as CHYNA (negative), RF (negative), Anti-CCP (negative), and ANC (pending). The patient will need a repeat CT of her chest in [address] Aranda will follow this up as outpatient. Finally, the patient had an echocardiogram on this admission based on a POCUS examination showing a borderline LV function. Formal echocardiography revealed LVEF of 45-50%, global hypokinesis of the LV. Regional wall motion abnormalities could not be excluded. PA pressures were not able to be assessed. She did require a dose of furosemide on this admission and is euvolemic at the time of discharge. She will need to follow up with her PCP to have this investigated further and was given information on a low sodium diet and to monitor herself for signs of edema. She is medically stable for discharge home today to complete her course of antibiotics and steroids. She will need to follow up with her PCP, her ID specialist Dr Tompkins, and Dr Aranda. Care for patient in addition to completion of her discharge summary took 60 minutes on the day of discharge. Home Meds and New Rx's Prescriptions: New famotidine 20 mg Tablet 20 mg PO HS Qty: 7 0RF nicotine 21 mg/24 hr Patch 24 Hour 21 mg transdermal DAILY PRN PRNQty: 30 0RF azithromycin 250 mg Tablet 250 mg PO DAILY Qty: 2 0RF prednisone 10 mg tablet See Rx Instructions .ROUTE .COMPLEX Qty: 12 0RF Rx Instructions: 30 mg PO daily x 2 days, then 20 mg PO daily x 2 days, then 10 mg PO daily x 2 days, then stop. Continued albuterol sulfate [Ventolin HFA] 90 mcg/actuation HFA aerosol inhaler 1 puff INHALATION 4XD Patient Comments: INHALE 1 PUFF BY MOUTH FOUR TIMES DAILY budesonide-formoterol [Symbicort] 160-4.5 mcg/actuation HFA aerosol inhaler 1 puff INHALATION BID Patient Comments: INHALE 1 PUFF BY MOUTH TWICE DAILY (DME) Oxygen Tank Rx Instructions: 4L/min Odefsey 200-25-25 mg tablet 1 tab PO DAILY Patient Comments: TAKE 1 TABLET BY MOUTH EVERY DAY Discharge Instructions Instructions: Famotidine (By mouth), Prednisone (By mouth), Azithromycin (By mouth), Heart Failure (DC), How to Stop Smoking (DC), Heart Healthy Diet (DC), COPD (Chronic Obstructive Pulmonary Disease) (DC) Additional Instructions: Finish your antibiotics and steroids as prescribed. You must stop smoking! Follow up with your PCP, with Dr Aranda (pulmonology), and with ID. Return to the hospital with any fever, bleeding, chest pain, or worsening shortness of breath. Your prescription for oxygen changed to room air at rest and to 2L of O2 by NC on ambulation. Stand Alone Forms: Nursing Discharge Form Referrals: Sirena Aranda MD [ [facility] STAFF PHYSICIAN] - (Please call [phone] on Thursday to make a follow up appointment ) Rika Ventura [Primary Care Provider] - (Please call [phone] on Thursday to make a follow up appointment ) Endy Tompkins DO [OSTEOPATHIC DOCTOR] - (A Referal was faxed on 05/31 ) Activity:: Activity as Tolerated Equipment/Supplies:: Oxygen (L/min Below) Diet:: Low Sodium Discharge Orders Discharge Orders: Discharge Order (Routine); Ordered 05/31/22 Ordered By: Silvana Guzman DS: Summary Time Spent with Patient providing and/or coordinating discharge services: Greater than 30 minutes Status at Discharge Functional status at discharge: independent ambulation Overall status at discharge: patient is progressing back to baseline Mental Status: mental status grossly normal Speech and Movement: speech and movement normal Mood: congruent mood Affect: normal affect Exam Narrative Exam Narrative: General: Pleasant middle-aged female who is sitting up in a chair, A&Ox3, NAD, on 2L of O2 by NC HEENT: EOMI, MMM Heart: RRR, no m/r/g Lungs: faint expiratory wheezing B Abdomen: soft, nontender, nondistended Extremities: trace edema BLEs, symmetric Psych Mental Status: mental status grossly normal Speech and Movement: speech and movement normal Mood: congruent mood Affect: normal affect DS: Data Vitals/I&O Vitals and I&O: Vital Signs Temperature 36.8 C 05/31/22 07:10 Temperature Source Tympanic 05/31/22 07:10 Pulse 94 H 05/31/22 07:10 Pulse Rhythm Regular 05/31/22 10:01 Pulse 112 H 05/30/22 12:01 Respiratory Rate 17 05/31/22 07:10 Respiratory Effort Normal 05/31/22 10:01 Respiratory Depth Normal 05/31/22 10:01 Respiratory Pattern Normal 05/31/22 10:01 Blood Pressure 130/75 05/31/22 07:10 Blood Pressure Mean 111 05/30/22 17:00 Blood Pressure Position Sitting 05/30/22 09:57 Pulse Oximetry 97 05/31/22 08:27 Respiratory End-tidal CO2 45 05/29/22 08:45 Oxygen Delivery Method Nasal Cannula 05/31/22 08:27 Oxygen Flow Rate 4 05/31/22 08:27 Fraction of Inspired Oxygen (FIO2) 40 05/30/22 08:28 Pain Level 0 05/31/22 07:10 Comment RN notified 05/30/22 03:30 Intake & Output 05/30/22 05/30/22 05/31/22 11:59 23:59 11:59 Intake Total 1160 / 2373.333 1213.333 / 2373.333 Output Total 200 / 625 425 / 625 150 / 150 Balance 960 / 1748.333 788.333 / 1748.333 -150 / -150 Weight 79.4 kg 79.4 kg 83.9 kg Intake: IV 100 / 953.333 853.333 / 953.333 Oral 1060 / 1420 360 / 1420 Output: Urine 200 / 625 425 / 625 150 / 150 Other: Urine Color Yellow Straw Yellow Brown Urine Appearance Clear Clear Urine Odor Normal Normal Normal Comment pt denies dysuria pt up to void independently, pt endorses straw colored urine. Stool Size Large Stool Characteristics Formed Hard Brown Voiding Methods Bedside Commode Toilet Toilet Data Completed and Pending Completed studies during hospitalization [Text1]: CXR 05/27/22: 1. No acute pulmonary findings. 2. Tip of the enteric tube is seen just beyond the gastroesophageal junction.? The tip of the endotracheal tube is in good position well above the perez. CTA chest 05/28/22: No evidence of pulmonary embolism, thoracic aortic dissection or aneurysm.? Echo 05/29/22: Left ventricle appears grossly normal in size.? Systolic function is mildly reduced with an estimated ejection fraction of 45 to 50%.? No segmental wall motion abnormalities are identified Right ventricle appears normal in size and systolic function Both atria are normal in size No structural or hemodynamically significant valvular disease is seen Labs on day of discharge: Labs from last 24 hours 04/05/31/22 05/30/22 06:10 06:10 05:32 WBC 6.27 RBC 2.39 L Hgb 8.6 L Hct 26.9 L MCV 113 H MCH 36.0 H MCHC 32.0 RDW 13.5 Plt Count 208 MPV 8.6 Immature Gran % 0.3 Neutrophils % 66.5 Lymphocytes % 21.4 Monocytes % 11.3 Eosinophils % 0.5 Basophils % 0.0 Nucleated RBC % 0.0 Absolute Neutrophils 4.17 Absolute Lymphocytes 1.34 Absolute Monocytes 0.71 Absolute Eosinophils 0.03 Absolute Basophils 0.00 Sodium 141 Potassium 3.5 Chloride 103 Carbon Dioxide 37.1 H Anion Gap 0.9 L BUN 11 Creatinine 0.7 Est GFR (CKD-EPI 2020) 104.65 Glucose 111 H Calcium 8.4 L Phosphorus 4.0 Magnesium 2.0 Methadone EDDP (Methodone Metab) CHYNA Titer CHYNA Titer 2 CHYNA Titer 3 CHYNA Interpretation Add-On Test Request 05/30/22 05/29/22 05/27/22 05:32 12:55 20:07 WBC RBC Hgb Hct MCV MCH MCHC RDW Plt Count MPV Immature Gran % Neutrophils % Lymphocytes % Monocytes % Eosinophils % Basophils % Nucleated RBC % Absolute Neutrophils Absolute Lymphocytes Absolute Monocytes Absolute Eosinophils Absolute Basophils Sodium Potassium Chloride Carbon Dioxide Anion Gap BUN Creatinine Est GFR (CKD-EPI 2020) Glucose Calcium Phosphorus Magnesium Methadone Pending EDDP (Methodone Metab) Pending CHYNA Titer Not Applicable CHYNA Titer 2 Not Applicable CHYNA Titer 3 Not Applicable CHYNA Interpretation Negative Add-On Test Request DONE 05/27/22 20:07 WBC RBC Hgb Hct MCV MCH MCHC RDW Plt Count MPV Immature Gran % Neutrophils % Lymphocytes % Monocytes % Eosinophils % Basophils % Nucleated RBC % Absolute Neutrophils Absolute Lymphocytes Absolute Monocytes Absolute Eosinophils Absolute Basophils Sodium Potassium Chloride Carbon Dioxide Anion Gap BUN Creatinine Est GFR (CKD-EPI 2020) Glucose Calcium Phosphorus Magnesium Methadone Cancelled EDDP (Methodone Metab) Cancelled CHYNA Titer CHYNA Titer 2 CHYNA Titer 3 CHYNA Interpretation Add-On Test Request Preliminary micro results at discharge 05/29/22 09:00 Sputum Culture - Preliminary Sputum Normal Lilly PFSH All Active Problems (Updated 05/31/22 @ 12:51 by Silvana Guzman MD) HFrEF (heart failure with reduced ejection fraction) (Acute) Tobacco abuse (Acute) Anemia (Chronic) Pulmonary cavitary lesion (Acute) Acute on chronic respiratory failure with hypoxia and hypercapnia (Acute) On famotidine prophylaxis (Acute) Discharge planning issues (Acute) DVT prophylaxis (Acute) Acute respiratory acidosis (Acute) Acute respiratory failure with hypoxia and hypercapnia (Acute) Acute exacerbation of COPD with asthma (Acute) Tendinitis of left rotator cuff (Acute) Swollen feet (Acute) Squamous cell carcinoma in situ (Acute) unknown location Restless legs (Acute) Posttraumatic stress disorder (Acute) Nicotine dependence with current use (Acute) Migraine (Chronic) Kidney stone (Chronic) Insomnia (Acute) GERD (gastroesophageal reflux disease) (Chronic) Elevated blood pressure reading (Acute) Dyspnea (Acute) Depressive disorder (Chronic) Bipolar disorder (Acute) Back problem (Acute) Asthma (Chronic) Arthritis (Acute) Opioid abuse (Acute) Illicit drug use (Acute) Chronic respiratory failure with hypoxia, on home O2 therapy (Acute) COPD (chronic obstructive pulmonary disease) (Chronic) HIV (human immunodeficiency virus infection) (Acute) Surgical History (Updated 05/27/22 @ 20:32 by Silvana Guzman MD) H/O endoscopy 06/11/2011 History of excision of lesion Hx of colonoscopy 04/16/2011 Hx of hysterectomy 01/09/2002 Family History (Updated 05/27/22 @ 20:33 by Silvana Guzman MD) Other Family history unobtainable due to patient's condition Social History (Updated 05/27/22 @ 20:37 by Silvana Guzman MD) Smoking/Tobacco Use Status: Current every day Smoking risk assessment performed?: Yes Drug use: Daily Details: per report, daily non-prescribed methadone use Time Spent with Patient Time Spent with Patient: 45-69 minutes Time was spent: preparing to see the patient(eg.review tests), obtaining and/or reviewing separately otained hiistory, ordering medications,tests, procedures, referring, communicating with other health laboratory animal caretaker, indepentently interpreting results, counseling the patient and care coordination
[2022-05-31 12:09] LABS: Blastomyces Ag Result Not Detected; Blastomyces Ag Value Not Detected
[2022-05-31 12:33] LABS: Myeloperoxidase Ab IgG <0.2 U; Proteinase 3 Ab (PR3) <0.2 U
--- NOTE | 2022-05-31 15:18 | PDOC.CMDIS ---
- If Service Date Differs Date of service: 05/31/22 Time of Service: 15:18 LACE Index Scoring Tool - Questions: Length of Stay (in days): 4 - 6 Acuity (Admit via E.D.?): No E.D. Visits: 0 - Answers: Total Score: 4 Risk of Readmission: Low Risk Care Management Discharge Reason for Hospitalization: Acute Hypoxic and Hypercarbic Respiratory Failure Discharge Plan: Adele will return home when ready per MD, follow up with her PCP, resume home O2, and transport via private vehicle with family. Patient/Family Education Needs: Review discharge instructions, discuss Ask Me Three. Services Needed at Discharge: Oxygen Therapy (Resumption 4L baseline)
[2022-05-31 16:24] LABS: Mycoplasma Pneumoniae PCR Negative; Specimen source Sputum
[2022-06-02 12:58] LABS: TB Interpretation Negative (Negative)
[2022-06-05 00:28] LABS: EDDP <10.0 ng/mL; Methadone <10.0 ng/mL
== END 2022-05-31 14:08 | disposition home or self-care (01) | DRG 208 ==
LOC: ICU 05-30 14:52 → MS 05-30 17:57
PROVIDERS: Family Medicine; Internal Medicine; Student in an Organized Health Care Education/Training Program; Admitting Provider Internal Medicine; PCP Family Medicine; Visit Provider Internal Medicine
DX: J44.1 Chronic obstructive pulmonary disease with (acute) exacerbation (principal); I50.21 Acute systolic (congestive) heart failure; J96.21 Acute and chronic respiratory failure with hypoxia; J96.22 Acute and chronic respiratory failure with hypercapnia; B20 Human immunodeficiency virus [HIV] disease; F17.210 Nicotine dependence, cigarettes, uncomplicated; D64.9 Anemia, unspecified; E87.6 Hypokalemia; G25.81 Restless legs syndrome; F43.11 Post-traumatic stress disorder, acute; G43.909 Migraine, unspecified, not intractable, without status migrainosus; N20.0 Calculus of kidney; G47.00 Insomnia, unspecified; K21.9 Gastro-esophageal reflux disease without esophagitis; F31.9 Bipolar disorder, unspecified; J45.909 Unspecified asthma, uncomplicated; F11.10 Opioid abuse, uncomplicated; J44.9 Chronic obstructive pulmonary disease, unspecified; R91.8 Other nonspecific abnormal finding of lung field
CPT/HCPCS: 36415; 71275; 80048; 80053; 80358; 82805; 84145; 86200; 87449; 87536; 87637; 93306; 93308; 94618; 94640; 97162; 97530; J1650; 36600; 71045; 81003; 81015; 83516; 83735; 83880; 84100; 84484; 85025; 85379; 86038; 86359; 86360; 86431; 86480; 87070; 87205; 87385; 87581; 93005; 93010; 94003; 94664; 94667; 94668; 94760; 99239; 99291; J0456; J1940; J2060; J2930; J3480; J3490; J7512; J7614; J7620